=== PATIENT | female | born 1940 | race Caucasian/White ===

== ENCOUNTER 2017-08-21 18:29 | Inpatient (IN) | payer OTHER ==
[~2017-08-21] VITALS: Ht 162.6 cm; Wt 75.8 kg
[2017-08-21] MEDS ORDERED: ALBUT/IPRATROP 3MG/0.5MG NEB 3 ML VIAL INH ONE (19:00)
[2017-08-21 19:15] LABS: BASO % 0.5 %; BASO ABS # 0.04 K/uL (0-0.2); EOS % 4.7 %; EOS ABS # 0.39 K/uL (0-0.5); HEMATOCRIT 34.6 % (37-47); HEMOGLOBIN 11.9 g/dL (12.0-16.0); IG# 0.02 K/uL (0.00-0.02); LYMPH % 18.2 %; LYMPH ABS # 1.51 K/uL (1.2-3.4); MEAN CELL VOLUME 89.2 fL (80-100); MEAN CORPUSCULAR HEMOGLOBIN 30.7 pg (25-34); MEAN CORPUSCULAR HGB CONC 34.4 g/dl (32-36); MEAN PLATELET VOLUME 9.3 fL (7.4-10.4); MONO % 13.9 %; MONO ABS # 1.15 K/uL (0.11-0.59); NEUT % 62.5 %; NEUT ABS # 5.19 K/uL (1.4-6.5); PLATELET COUNT 246 K/uL (130-400); RED CELL DISTRIBUTION WIDTH CV 13.5 % (11.5-14.5); RED CELL DISTRIBUTION WIDTH SD 43.5 fL (36.4-46.3)
--- NOTE | 2017-08-21 19:28 | DIAGNOSTIC IMAGING REPORT ---
CHEST ONE VIEW PORTABLE CLINICAL HISTORY: Shortness of breath COMPARISON STUDY: No previous studies for comparison. FINDINGS: The heart is enlarged. There is elevation of the interstitium, likely secondary to interstitial pulmonary edema. There is no lobar consolidation. Small pleural effusions are suspected.[ IMPRESSION: Cardiomegaly and radiographic evidence of interstitial pulmonary edema. Small bilateral pleural effusions. Electronically signed by: Philippe Ruano M.D. 08/21/2017 7:26 PM Dictated Date/Time: 08/21/2017 7:26 PM
[2017-08-21 19:35] LABS: CREATININE 1.89 mg/dl (0.60-1.20)
--- NOTE | 2017-08-21 19:35 | EMERGENCY ROOM VISIT NOTE ---
History Report prepared by Argelia: Willy Gallardo Under the Supervision of: Dr. Gil Rosado M.D. First contact with patient: 18:42 Chief Complaint: RESPIRATORY PROBLEMS Stated Complaint: FEVER, HEADACHE, DIFFICULTY BREATHING, UTI History of Present Illness The patient is a 77 year old female who presents to the Emergency Room with complaints of intermittent shortness of breath beginning today. She currently rates her discomfort an 8/10 in severity. The patient's daughter states this is her third episode today. She reports the patient is on 2L of oxygen 08/12. The daughter notes the patient receives dialysis MWF. She states the patient was on steroids for her breathing about 3 months ago. The daughter reports the patient was at [facility] earlier and was told to come to the ED because she could not urinate and had a fever. She notes the patient has a history of UTIs and is showing her typical symptoms as well. The daughter states the patient did receive her flu shot this year. The patient denies abdominal pain. Source of History: patient, family (daughter) Onset: today Symptom Intensity: 8/10 Quality: other (SOB) Timing: intermittent Associated Symptoms: + fevers, No abdominal pain Note: Associated symptoms: inability to urinate Review of Systems See HPI for pertinent positives & negatives. A total of 10 systems reviewed and were otherwise negative. Past Medical & Surgical Medical Problems: (1) COPD exacerbation (2) UTI (urinary tract infection) (3) UTI (urinary tract infection) Family History Patient reports no known family medical history. Social History Smoking Status: Former Smoker Marital Status: Occupation Status: retired Current/Historical Medications Scheduled Albuterol Sulf (Proventil 0.083% 2.5MG/3ML), 2.5 MG INH BID Amlodipine (Norvasc), 5 MG PO QPM Arformoterol Tartrate (Brovana), 15 MCG INH BID Aspirin (Aspirin Chewable), 81 MG PO DAILY B-Complex W/ C & Folic Acid (Triphrocaps), 1 CAP PO DAILY Budesonide (Pulmicort Respules 0.5MG/2ML), 2 ML INH BID Clonidine Hcl (Catapres), 0.1 MG PO BID Ergocalciferol (Vitamin D 06558 Unit), 50,000 UNIT PO WK Ferrous Sulfate (Ferrous Sulfate), 325 MG PO BID Furosemide (Lasix), 80 MG PO BID Furosemide (Lasix), 40 MG PO BID Insulin Aspart (Novolog), 6 UNITS SQ Q DINNER Insulin Human NPH (Novolin N), 8 UNITS SQ BID Metoprolol Tartrate (Lopressor) (Lopressor), 50 MG PO BID Metoprolol Tartrate (Lopressor) (Lopressor), 25 MG PO BID Montelukast Sodium (Singulair), 10 MG PO HS Paroxetine (Paxil), 20 MG PO HS Potassium Ext Rel (Klor-Con), 20 MEQ PO DAILY Pravastatin Sodium (Pravachol), 1 TAB PO QPM Probiotic Product (Probiotic), 1 CAP PO DAILY Ranitidine Hcl (Zantac), 150 MG PO BID Tiotropium [place] (Spiriva Respimat), 2 PUFF INH QAM [Lidocaine Prilocaine], 1 APPLN TOP UD Scheduled PRN Docusate Sodium (Colace), 1 CAP PO DAILY PRN for Constipation Flunisolide (Nasal) (Flunisolide), 2 SPRY NIKOS BID PRN for Nasal Congestion Fluocinonide (Lidex 0.05% Oint), 1 APPLN TOP BID PRN for AFFECTED ARREA Polyethylene Glycol 3350 (Miralax), 17 GM PO DAILY PRN for Constipation Polyethylene Glycol-Propylene (Systane Ultra), 1 DROPS OP QID PRN for DRYNESS Allergies Coded Allergies: No Known Allergies (Unverified , 08/21/17) Physical Exam Vital Signs Date Time Temp Pulse Resp B/P (MAP) Pulse Ox O2 Delivery O2 Flow Rate FiO2 08/21/17 20:03 67 20 163/87 100 Nebulizer 08/21/17 19:49 66 24 98 Mask 3.0 08/21/17 19:24 63 22 171/88 100 Nebulizer 08/21/17 19:12 63 08/21/17 19:06 99 Nasal Cannula 2.0 08/21/17 19:06 99 Nebulizer 2.0 08/21/17 19:03 95 Room Air 08/21/17 18:33 36.9 68 22 170/53 96 Nasal Cannula 2.0 Physical Exam GENERAL: Awake, alert, well-appearing, in no acute distress HENT: Normocephalic, atraumatic. Oropharynx unremarkable. EYES: Normal conjunctiva. Sclera non-icteric. NECK: Supple. No nuchal rigidity. FROM. No JVD. RESPIRATORY: Bilateral wheezing at bases. CARDIAC: Regular rate, normal rhythm. Extremities warm and well perfused. Pulses equal. ABDOMEN: Soft, non-distended. No tenderness to palpation. No rebound or guarding. No masses. RECTAL: Deferred. MUSCULOSKELETAL: Chest examination reveals no tenderness. The back is symmetrical on inspection without obvious abnormality. There is no CVA tenderness to palpation. No joint edema. LOWER EXTREMITIES: Calves are equal size bilaterally and non-tender. No edema. No discoloration. NEURO: Normal sensorium. No sensory or motor deficits noted. SKIN: No rash or jaundice noted. Medical Decision & Procedures ER Provider Diagnostic Interpretation: X-ray results as stated below per interpretation by me and the radiologist: CHEST ONE VIEW PORTABLE CLINICAL HISTORY: Shortness of breath COMPARISON STUDY: No previous studies for comparison. FINDINGS: The heart is enlarged. There is elevation of the interstitium, likely secondary to interstitial pulmonary edema. There is no lobar consolidation. Small pleural effusions are suspected. IMPRESSION: Cardiomegaly and radiographic evidence of interstitial pulmonary edema. Small bilateral pleural effusions. Electronically signed by: Philippe Ruano M.D. 08/21/2017 7:26 PM Dictated Date/Time: 08/21/2017 7:26 PM Laboratory Results 08/21/17 19:00 Red Blood Count 3.88, Mean Corpuscular Volume 89.2, Mean Corpuscular Hemoglobin 30.7, Mean Corpuscular Hemoglobin Concent 34.4, Mean Platelet Volume 9.3, Neutrophils (%) (Auto) 62.5, Lymphocytes (%) (Auto) 18.2, Monocytes (%) (Auto) 13.9, Eosinophils (%) (Auto) 4.7, Basophils (%) (Auto) 0.5, Neutrophils # (Auto ) 5.19, Lymphocytes # (Auto) 1.51, Monocytes # (Auto) 1.15, Eosinophils # (Auto ) 0.39, Basophils # (Auto) 0.04 08/21/17 19:00 Test 08/21/17 19:00 08/21/17 19:21 White Blood Count 8.30 K/uL (4.8-10.8) Red Blood Count 3.88 M/uL (4.2-5.4) Hemoglobin 11.9 g/dL (12.0-16.0) Hematocrit 34.6 % (37-47) Mean Corpuscular Volume 89.2 fL (80-100) Mean Corpuscular Hemoglobin 30.7 pg (25-34) Mean Corpuscular Hemoglobin Concent 34.4 g/dl (32-36) Platelet Count 246 K/uL (130-400) Mean Platelet Volume 9.3 fL (7.4-10.4) Neutrophils (%) (Auto) 62.5 % Lymphocytes (%) (Auto) 18.2 % Monocytes (%) (Auto) 13.9 % Eosinophils (%) (Auto) 4.7 % Basophils (%) (Auto) 0.5 % Neutrophils # (Auto) 5.19 K/uL (1.4-6.5) Lymphocytes # (Auto) 1.51 K/uL (1.2-3.4) Monocytes # (Auto) 1.15 K/uL (0.11-0.59) Eosinophils # (Auto) 0.39 K/uL (0-0.5) Basophils # (Auto) 0.04 K/uL (0-0.2) RDW Standard Deviation 43.5 fL (36.4-46.3) RDW Coefficient of Variation 13.5 % (11.5-14.5) Immature Granulocyte % (Auto) 0.2 % Immature Granulocyte # (Auto) 0.02 K/uL (0.00-0.02) Prothrombin Time 11.3 SECONDS (9.0-12.0) Prothromb Time International Ratio 1.1 (0.9-1.1) Anion Gap 7.0 mmol/L (3-11) Est Creatinine Clear Calc Drug Dose 23.4 ml/min Estimated GFR () 28.9 Estimated GFR (Non- 25.0 BUN/Creatinine Ratio 11.1 (10-20) Calcium Level 8.3 mg/dl (8.5-10.1) Total Bilirubin 0.4 mg/dl (0.2-1) Aspartate Amino Transf (AST/SGOT) 24 U/L (15-37) Alanine Aminotransferase (ALT/SGPT) 56 U/L (12-78) Alkaline Phosphatase 87 U/L (45-117) Total Creatine Kinase 53 U/L (26-192) Creatine Kinase MB 1.7 ng/ml (0.5-3.6) Creatine Kinase MB Ratio 3.2 (0-3.0) Total Protein 6.9 gm/dl (6.4-8.2) Albumin 2.7 gm/dl (3.4-5.0) Globulin 4.2 gm/dl (2.5-4.0) Albumin/Globulin Ratio 0.6 (0.9-2) Influenza Type A Antigen Neg for Influ A (NEG) Influenza Type B Antigen Neg for Influ B (NEG) Urine Color YELLOW Urine Appearance CLEAR (CLEAR) Urine pH 6.5 (4.5-7.5) Urine Specific [place] 1.013 (1.000-1.030) Urine Protein 3+ (NEG) Urine Glucose (UA) NEG (NEG) Urine Ketones NEG (NEG) Urine Occult Blood NEG (NEG) Urine Nitrite POS (NEG) Urine Bilirubin NEG (NEG) Urine Urobilinogen NEG (NEG) Urine Leukocyte Esterase SMALL (NEG) Urine WBC (Auto) 10-30 /hpf (0-5) Urine RBC (Auto) 0-4 /hpf (0-4) Urine Hyaline Casts (Auto) 1-5 /lpf (0-5) Urine Epithelial Cells (Auto) 20-30 /lpf (0-5) Urine Bacteria (Auto) NEG (NEG) Labs reviewed by ED physician. Medications Administered Medications (Trade) Dose Ordered Sig/Yfn Route Start Time Stop Time Status Last Admin Dose Admin Albuterol/ Ipratropium (Duoneb) 12 ml ONE ONCE INH 08/21/17 19:00 08/21/17 19:01 DC 08/21/17 19:11 12 ML Ceftriaxone Sodium (Rocephin Inj) 1 gm NOW STAT IV 08/21/17 19:41 08/21/17 19:42 DC 08/21/17 20:03 1 GM Albuterol/ Ipratropium (Duoneb) 3 ml Q6R NEB 08/21/17 03:00 09/20/17 02:59 08/22/17 02:05 3 ML ECG Per My Interpretation Indication: SOB/dyspnea Rate (beats per minute): 66 Rhythm: normal sinus Findings: RBBB, left axis deviation, other (No ST elevation or depression) ED Course 1844: Past medical records reviewed. The patient was evaluated in room C07. A complete history and physical examination was performed. 1899: Ordered Duoneb 12ml INH 1937: Upon reexamination the patient is resting comfortably. I discussed results and treatment plan with the patient. She verbalizes agreement and understanding. The patient will be evaluated for further management. 1940: Ordered Rocephin Inj 1gm IV 2008: I discussed the patient's case with Johanna Galeano Hospitalist. The patient will be evaluated for further management and care. Medical Decision Etiologies such as infections, reactive airway disease, pneumonia, pneumothorax , COPD, CHF, cardiac ischemia, pulmonary embolism, musculoskeletal, gastrointestinal, as well as others were entertained. This is a 77-year-old female who receives dialysis on Thursday and Fridays. She is brought into the emergency department over concerns about an altered mental status. The patient's urine appears to have infection present. For this reason she was started on IV Rocephin. She was given an hour-long breathing treatment here in the emergency department. I did discuss her case with the hospitalist service who agreed to admit the patient. Both patient and family were in agreement with the treatment plan. Medication Reconcilliation Current Medication List: was personally reviewed by me Blood Pressure Screening Patient's blood pressure: Elevated blood pressure Referred to hospitalist. Consults Time Called: 1957 Consulting Physician: Johanna Galeano Hospitalist Returned Call: 2008 I discussed the patient's case with Joahnna Galeano. The patient will be evaluated for further management and care. Impression Primary Impression: SOB (shortness of breath) Additional Impressions: UTI (urinary tract infection) Altered mental status Scribe Attestation The scribe's documentation has been prepared under my direction and personally reviewed by me in its entirety. I confirm that the note above accurately reflects all work, treatment, procedures, and medical decision making performed by me. Departure Information Dispostion Being Evaluated By Hospitalist Referrals No Doctor, Assigned (PCP) Patient Instructions My [facility] Problem Qualifiers Additional Impressions: UTI (urinary tract infection) Urinary tract infection type: acute cystitis Hematuria presence: without hematuria Qualified Codes: N30.00 - Acute cystitis without hematuria Altered mental status Altered mental status type: unspecified Qualified Codes: R41.82 - Altered mental status, unspecified
[2017-08-21 19:36] LABS: ALBUMIN 2.7 gm/dl (3.4-5.0); CALCIUM 8.3 mg/dl (8.5-10.1)
[2017-08-21 19:40] LABS: CKMB 1.7 ng/ml (0.5-3.6); TOTAL PROTEIN 6.9 gm/dl (6.4-8.2)
[2017-08-21] MEDS ORDERED: CEFTRIAXONE SOD INJ 1 GM ADDVIAL IV STA (19:41)
[2017-08-21 19:49] VITALS: PULSE 66; O2SAT 98
[2017-08-21 20:02] LABS: INFLUENZA B ANTIGEN Neg for Influ B (NEG)
[2017-08-21] MEDS ORDERED: ENOXAPARIN 40 MG/0.4 ML SYR SC SCH (20:30)
[2017-08-21] MEDS ORDERED: DEXTROSE 50% 50 ML SYR IV PRN (20:30)
[2017-08-21] MEDS ORDERED: GLUCOSE 10 TABS/TUBE PO PRN (20:30)
[2017-08-21] MEDS ORDERED: GLUCAGON FOR INJ 1 MG VIAL SQ PRN (20:30)
[2017-08-21] MEDS ORDERED: ONDANSETRON INJ 2 MG/ML 2 ML VIAL IV PRN (20:30)
[2017-08-21] MEDS ORDERED: ACETAMINOPHEN 325 MG TAB PO PRN (20:30)
[2017-08-21] MEDS ORDERED: GLUCOSE 40% GEL 15 GM TUBE PO PRN (20:30)
[2017-08-21] MEDS ORDERED: ERGO500037 PO (20:44)
[2017-08-21] MEDS ORDERED: B-COCAP28 PO (20:44)
[2017-08-21] MEDS ORDERED: TIOT1SPR INH (20:44)
[2017-08-21] MEDS ORDERED: POLY1SOL6 OP (20:44)
[2017-08-21] MEDS ORDERED: PHARMACY GLYCEMIC MGMT CONSULT SCH (20:54)
[2017-08-21] MEDS ORDERED: AMLO-110 PO (20:57)
[2017-08-21] MEDS ORDERED: FURO80TA63 PO (20:57)
[2017-08-21] MEDS ORDERED: FRS/40 PO (20:57)
[2017-08-21] MEDS ORDERED: ARFO15NE INH (20:57)
[2017-08-21] MEDS ORDERED: ASPCH81X PO (20:57)
[2017-08-21] MEDS ORDERED: FLUN0.02 NAE (20:57)
[2017-08-21] MEDS ORDERED: DOCU-94 PO (20:57)
[2017-08-21] MEDS ORDERED: CTP/1 PO (20:57)
[2017-08-21] MEDS ORDERED: LDXO60 TOP (20:57)
[2017-08-21] MEDS ORDERED: ALBINS/ INH (20:57)
[2017-08-21] MEDS ORDERED: PLMINSR5 INH (20:57)
[2017-08-21] MEDS ORDERED: FERR1TAB62 PO (20:57)
[2017-08-21] MEDS ORDERED: PATIENT'S ALLERGY INFO NEEDS ENTERED SCH (21:00)
--- NOTE | 2017-08-21 21:07 | History and Physical ---
History & Physical Date & Time of Service: Aug 21, 2017 at 20:56 Chief Complaint: Fever, Headache, Difficulty Breathing, Uti Primary Care Physician: No Doctor, Assigned History of Present Illness Source: patient, family, clinic records, hospital records This is a 77 year old female with a PMH of ESRD on HD --, COPD and chronic respiratory failure on 2L of O2 continuously, CAD, insulin dependent DM2, chronic systolic CHF, HTN - presents with worsening shortness of breath x1 day and UTI. Patient was short of breath all day; went to dialysis and had her dialysis, she felt slightly better, but then became more short of breath. Pt. uses 2L of O2 chronically. As per daughter, she was also concerned about a UTI because the patient becomes more lethargic/tired with UTIs; she has had recurrent UTIs in the past. Currently, she is saturating well on her baseline O2. Very hard of hearing and lethargic; most of the history is obtained by the daughter. Past Medical/Surgical History Medical Problems: (1) COPD exacerbation (2) UTI (urinary tract infection) (3) UTI (urinary tract infection) Family History Patient reports no known family medical history. Social History Smoking Status: Former Smoker Marital Status: Occupational Status: retired Home Medications Scheduled Albuterol Sulf (Proventil 0.083% 2.5MG/3ML), 2.5 MG INH BID Amlodipine (Norvasc), 5 MG PO DAILY Arformoterol Tartrate (Brovana), 15 MCG INH BID Aspirin (Aspirin Chewable), 81 MG PO DAILY B-Complex W/ C & Folic Acid (Triphrocaps), 1 CAP PO DAILY Budesonide (Pulmicort Respules 0.5MG/2ML), 2 ML INH BID Clonidine Hcl (Catapres), 0.1 MG PO BID Ergocalciferol (Vitamin D 07833 Unit), 50,000 UNIT PO WK Ferrous Sulfate (Ferrous Sulfate), 325 MG PO BID Flunisolide (Nasal) (Flunisolide), 2 SPRY NIKOS BID Furosemide (Lasix), 80 MG PO BID Furosemide (Lasix), 40 MG PO BID Tiotropium [place] (Spiriva Respimat), 2 PUFF INH QAM Scheduled PRN Docusate Sodium (Colace), 1 CAP PO DAILY PRN for Constipation Fluocinonide (Lidex 0.05% Oint), 1 APPLN TOP BID PRN for AFFECTED ARREA Polyethylene Glycol-Propylene (Systane Ultra), 1 DROPS OP QID PRN for DRYNESS Review of Systems Cannot obtain due to patient's lethargy; SOB was her main complaint during dialysis. Respiratory: + shortness of breath Physical Exam Vital Signs Date Time Temp Pulse Resp B/P (MAP) Pulse Ox O2 Delivery O2 Flow Rate FiO2 08/21/17 20:03 67 20 163/87 100 Nebulizer 08/21/17 19:49 66 24 98 Mask 3.0 08/21/17 19:24 63 22 171/88 100 Nebulizer 08/21/17 19:12 63 08/21/17 19:06 99 Nasal Cannula 2.0 08/21/17 19:06 99 Nebulizer 2.0 08/21/17 19:03 95 Room Air 08/21/17 18:33 36.9 68 22 170/53 96 Nasal Cannula 2.0 General Appearance: + pertinent finding (lethargic) Head: normocephalic, atraumatic Eyes: normal inspection ENT: + pertinent finding (hard of hearing) Neck: supple Respiratory/Chest: no respiratory distress, no accessory muscle use, + decreased breath sounds Cardiovascular: regular rate, rhythm, no edema, + systolic murmur (+2/6 holosystolic murmur) Abdomen/GI: normal bowel sounds, non tender, soft Extremities/Musculoskelatal: normal inspection, no calf tenderness, normal capillary refill, no pedal edema, normal range of motion Neurologic/Psych: no motor/sensory deficits, + pertinent finding (+lethargic, arouses to verbal/tactile stimuli) Skin: normal color Lymphatic: no adenopathy Diagnostics Laboratory Results Results Past 24 Hours Test 08/21/17 19:00 08/21/17 19:21 Range/Units White Blood Count 8.30 4.8-10.8 K/uL Red Blood Count 3.88 4.2-5.4 M/uL Hemoglobin 11.9 12.0-16.0 g/dL Hematocrit 34.6 37-47 % Mean Corpuscular Volume 89.2 80-100 fL Mean Corpuscular Hemoglobin 30.7 25-34 pg Mean Corpuscular Hemoglobin Concent 34.4 32-36 g/dl Platelet Count 246 130-400 K/uL Mean Platelet Volume 9.3 7.4-10.4 fL Neutrophils (%) (Auto) 62.5 % Lymphocytes (%) (Auto) 18.2 % Monocytes (%) (Auto) 13.9 % Eosinophils (%) (Auto) 4.7 % Basophils (%) (Auto) 0.5 % Neutrophils # (Auto) 5.19 1.4-6.5 K/uL Lymphocytes # (Auto) 1.51 1.2-3.4 K/uL Monocytes # (Auto) 1.15 0.11-0.59 K/uL Eosinophils # (Auto) 0.39 0-0.5 K/uL Basophils # (Auto) 0.04 0-0.2 K/uL RDW Standard Deviation 43.5 36.4-46.3 fL RDW Coefficient of Variation 13.5 11.5-14.5 % Immature Granulocyte % (Auto) 0.2 % Immature Granulocyte # (Auto) 0.02 0.00-0.02 K/uL Sodium Level 130 136-145 mmol/L Potassium Level 4.0 3.5-5.1 mmol/L Chloride Level 94 98-107 mmol/L Carbon Dioxide Level 29 21-32 mmol/L Anion Gap 7.0 3-11 mmol/L Blood Urea Nitrogen 21 7-18 mg/dl Creatinine 1.89 0.60-1.20 mg/dl Est Creatinine Clear Calc Drug Dose 23.4 ml/min Estimated GFR () 28.9 Estimated GFR (Non- 25.0 BUN/Creatinine Ratio 11.1 10-20 Random Glucose 199 70-99 mg/dl Calcium Level 8.3 8.5-10.1 mg/dl Total Bilirubin 0.4 0.2-1 mg/dl Aspartate Amino Transf (AST/SGOT) 24 15-37 U/L Alanine Aminotransferase (ALT/SGPT) 56 12-78 U/L Alkaline Phosphatase 87 45-117 U/L Total Creatine Kinase 53 26-192 U/L Creatine Kinase MB 1.7 0.5-3.6 ng/ml Creatine Kinase MB Ratio 3.2 0-3.0 Total Protein 6.9 6.4-8.2 gm/dl Albumin 2.7 3.4-5.0 gm/dl Globulin 4.2 2.5-4.0 gm/dl Albumin/Globulin Ratio 0.6 0.9-2 Influenza Type A Antigen Neg for Influ A NEG Influenza Type B Antigen Neg for Influ B NEG Urine Color YELLOW Urine Appearance CLEAR CLEAR Urine pH 6.5 4.5-7.5 Urine Specific [place] 1.013 1.000-1.030 Urine Protein 3+ NEG Urine Glucose (UA) NEG NEG Urine Ketones NEG NEG Urine Occult Blood NEG NEG Urine Nitrite POS NEG Urine Bilirubin NEG NEG Urine Urobilinogen NEG NEG Urine Leukocyte Esterase SMALL NEG Urine WBC (Auto) 10-30 0-5 /hpf Urine RBC (Auto) 0-4 0-4 /hpf Urine Hyaline Casts (Auto) 1-5 0-5 /lpf Urine Epithelial Cells (Auto) 20-30 0-5 /lpf Urine Bacteria (Auto) NEG NEG Microbiology Results 08/21/17 Urine Culture, Received Pending Diagnostic Radiology CHEST ONE VIEW PORTABLE CLINICAL HISTORY: Shortness of breath COMPARISON STUDY: No previous studies for comparison. FINDINGS: The heart is enlarged. There is elevation of the interstitium, likely secondary to interstitial pulmonary edema. There is no lobar consolidation. Small pleural effusions are suspected.[ IMPRESSION: Cardiomegaly and radiographic evidence of interstitial pulmonary edema. Small bilateral pleural effusions. EKG Normal sinus rhythm Left axis deviation Right bundle branch block Impression Assessment and Plan This is a 77 year old female with a PMH of ESRD on HD , COPD and chronic respiratory failure on 2L of O2 continuously, CAD, insulin dependent DM2, chronic systolic CHF, HTN - presents with worsening shortness of breath x1 day and UTI Acute COPD Exacerbation in the setting of Chronic Respiratory Failure - patient presents with worsening shortness of breath; COPD vs. fluid overload? - patient received dialysis today (08/21) - will add prednisone 40mg daily x5 days, Azithromycin, and nebs as needed - chronically on 2L of O2 - will consult nephrology for possible dialysis for more fluid removal? ESRD on HD - - nephrology consulted Chronic Systolic CHF - possible acute exacerbation? - will give an extra dose of Lasix; patient still produces urine - nephrology consulted - patient takes 120mg of Lasix daily UTI - started Rocephin - as per patient's daughter, patient gets confused with UTIs - urine culture is pending Insulin Dependent DM2 - due to prednisone use, will use sliding scale and Lantus - pharmacy consulted DVT ppx - subq heparin DNR Resuscitation Status VTE Prophylaxis Will order VTE Prophylaxis: Yes
[2017-08-21] MEDS ORDERED: PARO1TAB27 PO (21:12)
[2017-08-21] MEDS ORDERED: PRAV40TA PO (21:12)
[2017-08-21] MEDS ORDERED: NVLG SQ (21:12)
[2017-08-21] MEDS ORDERED: NVLNI SQ (21:12)
[2017-08-21] MEDS ORDERED: RANI150T3 PO (21:12)
[2017-08-21] MEDS ORDERED: MISCCAP80 PO (21:12)
[2017-08-21] MEDS ORDERED: POTA-639 PO (21:12)
[2017-08-21] MEDS ORDERED: LIDOCAINE PRILOCAINE TOP (21:12)
[2017-08-21] MEDS ORDERED: MONT1TAB3 PO (21:12)
[2017-08-21] MEDS ORDERED: POLY335019 PO (21:12)
[2017-08-21] MEDS ORDERED: METO50TA16 PO (21:12)
[2017-08-21] MEDS ORDERED: METO25TA56 PO (21:12)
[2017-08-21 21:15] VITALS: BP 190/63; PULSE 81; TEMP 36.9; O2SAT 94; BMI 28.2
[2017-08-21] MEDS ORDERED: DOCUSATE SODIUM 100 MG CAP PO PRN (21:15)
[2017-08-21] MEDS ORDERED: FUROSEMIDE INJ 40 MG in SYRINGE 0 ML IV ONE (21:30)
[2017-08-21] MEDS ORDERED: INSULIN GLARGINE SOLOSTAR 100 UNITS/ML 3 ML PEN SC SCH (21:45)
[2017-08-21] MEDS: ALBUT/IPRATROP 3MG/0.5MG NEB 3 ML VIAL NEB SCH ×4 (21:53→21:59)
[2017-08-21 22:04] LABS: INR 1.1 (0.9-1.1)
[2017-08-21] MEDS: FUROSEMIDE 40 MG TAB PO SCH (22:30)
[2017-08-21] MEDS: PAROXETINE 20 MG TAB PO SCH (22:31)
[2017-08-21] MEDS: FUROSEMIDE 80 MG TAB PO SCH (22:31)
[2017-08-21] MEDS: METOPROLOL TARTRATE 25 MG TAB PO SCH (22:31)
[2017-08-21] MEDS: AMLODIPINE BESYLATE 5 MG TAB PO SCH (22:31)
[2017-08-21] MEDS: PRAVASTATIN SOD 40 MG TAB PO SCH (22:31)
[2017-08-21] MEDS: MONTELUKAST SOD 10 MG TAB PO SCH (22:32)
[2017-08-21] MEDS: RANITIDINE HCL 150 MG TAB PO SCH (22:32)
[2017-08-21] MEDS: INSULIN ASPART 100 UNITS/ML 3 ML PEN SC SCH (22:33)
[2017-08-21 23:24] VITALS: BP 174/55; PULSE 73; TEMP 37; O2SAT 94
[2017-08-22] VITALS (15 sets, daily range): BP systolic 82–164; BP diastolic 33–65; PULSE 61–113; TEMP 36.4–37.1; O2SAT 75–100
[2017-08-22] MEDS ORDERED: VANCOMYCIN IV 1,000 MG in SODIUM CHLORIDE 0.9% 250ML 250 ML IV STA (01:06)
[2017-08-22] MEDS ORDERED: VANCOMYCIN CONSULT ACTIVE PRN (01:15)
[2017-08-22] MEDS ORDERED: VANCOMYCIN IV 1,500 MG in SODIUM CHLORIDE 0.9% 500ML 500 ML IV SCH (01:30)
[2017-08-22] MEDS: ALBUT/IPRATROP 3MG/0.5MG NEB 3 ML VIAL NEB SCH ×4 (02:05→19:29)
[2017-08-22] MEDS ORDERED: ALBUT/IPRATROP 3MG/0.5MG NEB 3 ML VIAL NEB ONE (03:27)
[2017-08-22] MEDS ORDERED: SODIUM CHLORIDE 0.9% 500ML 500 ML IV SCH (03:30)
[2017-08-22] MEDS ORDERED: METHYLPREDNISOLONE IV 40 MG in SYRINGE 0 ML IV STA (03:39)
[2017-08-22] MEDS ORDERED: LABETALOL HCL IV 5 MG/ML 20ML IV STA (03:39)
[2017-08-22] MEDS ORDERED: LABETALOL HCL 5 MG/ML 20 ML VIAL - CCU EMERGENCY DRUG ONE (03:40)
[2017-08-22] MEDS ORDERED: NITROGLYCERIN 2% OINTMENT 30GM TUBE EXT STA (03:47)
[2017-08-22 04:21] LABS: HEMATOCRIT 37.6 % (37-47); HEMOGLOBIN 12.6 g/dL (12.0-16.0); MEAN CELL VOLUME 91.7 fL (80-100); MEAN CORPUSCULAR HEMOGLOBIN 30.7 pg (25-34); MEAN CORPUSCULAR HGB CONC 33.5 g/dl (32-36); MEAN PLATELET VOLUME 9.5 fL (7.4-10.4); PLATELET COUNT 281 K/uL (130-400); RED CELL DISTRIBUTION WIDTH CV 13.6 % (11.5-14.5); RED CELL DISTRIBUTION WIDTH SD 45.8 fL (36.4-46.3)
--- NOTE | 2017-08-22 04:41 | Progress Note ---
Progress Note Date of Service Aug 22, 2017. Progress Note I also asked by the nurse to evaluate the patient with having more shortness of breath and low saturation. 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 She went to the restroom and following that she started to have more shortness of breath very anxious. The daughter of the patient was in the room with. My examination she was very anxious and shortness of breath at rest. Saturation went up to knee in 19 with 6 L nasal cannula oxygen and blood pressure is noted to be more than 200 systolic. Chest decreased breath sounds both sides with moderate wheezing, heart S1-S2 regular no murmur appreciated, abdomen benign distended soft bowel sounds present. Extremities no edema [employer] very anxious still communicating a little drowsy, moving all the limbs Assessment and plan acute shortness of breath with COPD exacerbation and possible pneumonia. She was given another dose of albuterol, IV Solu-Medrol of 40 mg, and BiPAP therapy started. ABG showed pH of 7.13, hypercarbia of 88-acidosis seems to be secondary to combined respiratory and metabolic acidosis. Chest x-ray showed possible fluid overload but no infiltration and/or pneumothorax. She received enough Lasix since admission and will not give any Lasix now. She has had dialysis yesterday. If her condition does not get any better she will be moved to ICU for continuation of care and that will discussed with the daughter. She is DNR. Accelerated hypertension. Her blood pressure went up to 210/100 on manual BP check. She was given 20 of IV labetalol and also 1 inch Nitropaste. EKG was done showed sinus tachycardia and troponin ordered. Blood pressure improved to systolic 150 did not recheck. The patient reevaluated-seems to be stable at this time but if the condition gets worse she will be moved to ICU. The case was discussed in detail with the daughter. Dr. Lindsay Hu
[2017-08-22 04:42] LABS: BLOOD UREA NITROGEN 31 mg/dl (7-18); CALCIUM 8.2 mg/dl (8.5-10.1); CARBON DIOXIDE 28 mmol/L (21-32); CREATININE 2.38 mg/dl (0.60-1.20); GLUCOSE 176 mg/dl (70-99); POTASSIUM 4.2 mmol/L (3.5-5.1); SODIUM 132 mmol/L (136-145)
[2017-08-22] MEDS: HEPARIN SOD 5000 UNIT/0.5 ML CARP SQ SCH ×3 (06:20→21:24)
[2017-08-22] MEDS: BUDESONIDE 0.5 MG/2 ML VIAL (PULMICORT) INH SCH ×2 (07:07→19:29)
[2017-08-22] MEDS: ARFORMOTEROL TART 15MCG/2ML VIAL INH SCH ×2 (07:07→19:29)
--- NOTE | 2017-08-22 07:41 | DIAGNOSTIC IMAGING REPORT ---
CHEST ONE VIEW PORTABLE CLINICAL HISTORY: 77 years-old Female presenting with sob, COPD exacerbation, UTI. TECHNIQUE: Portable upright AP view of the chest was obtained. COMPARISON: 08/21/2017. FINDINGS: Atherosclerosis of aortic arch. Cardiac silhouette enlarged. Interval increase in pulmonary vascular prominence and diffuse hazy lung opacities. Interval increase in small bilateral pleural effusions. No large pneumothorax. Osteopenia may be present. External leads project over the right upper quadrant degrading evaluation in this region. IMPRESSION: 1. Cardiomegaly with increasing pulmonary vascular prominence and diffuse lung opacities concerning for volume overload and pulmonary edema. Differential considerations include multifocal infection. 2. Small bilateral pleural effusions. Electronically signed by: Jim Collins M.D. 08/22/2017 7:40 AM Dictated Date/Time: 08/22/2017 7:38 AM
[2017-08-22] MEDS: FERROUS SULFATE 325 MG TAB PO SCH ×2 (08:41→17:28)
[2017-08-22] MEDS: FUROSEMIDE 40 MG TAB PO SCH (08:41)
[2017-08-22] MEDS: CLONIDINE HCL 0.1 MG TAB PO SCH ×3 (08:42→21:22)
[2017-08-22] MEDS: NEPHROCAPS PO SCH (08:43)
[2017-08-22] MEDS: AZITHROMYCIN 250 MG TAB PO SCH (08:43)
[2017-08-22] MEDS: RANITIDINE HCL 150 MG TAB PO SCH ×2 (08:44→21:23)
[2017-08-22] MEDS: FUROSEMIDE 80 MG TAB PO SCH (08:45)
[2017-08-22] MEDS: METOPROLOL TARTRATE 25 MG TAB PO SCH ×2 (08:45→21:23)
[2017-08-22] MEDS: TIOTROPIUM BROMIDE 5 PUFF/90 MCG INH INH SCH (08:48)
[2017-08-22] MEDS: INSULIN ASPART 100 UNITS/ML 3 ML PEN SC SCH ×4 (08:57→21:00)
[2017-08-22] MEDS ORDERED: FUROSEMIDE 80 MG TAB PO SCH (09:00)
[2017-08-22] MEDS ORDERED: METOPROLOL TARTRATE 50 MG TAB PO SCH (09:00)
[2017-08-22] MEDS ORDERED: METOPROLOL TARTRATE 25 MG TAB PO SCH (09:00)
[2017-08-22] MEDS ORDERED: FUROSEMIDE 40 MG TAB PO SCH (09:00)
[2017-08-22] MEDS ORDERED: ASPIRIN 81 MG CHEW PO SCH (09:00)
--- NOTE | 2017-08-22 09:35 | Pharmacy Progress Note ---
Pharmacy Antibiotic Consult Date of Service: Aug 22, 2017. Pharmacy Dosing Scope Pharmacy is consulted to initiate [] IV dosing therapy, order appropriate labs and adjust drug dose/frequency. Subjective 77 year old female patient with ESRD on dialysis receiving vancomycin for treatment of possible pnx. Increased SOB/weakness, pos. MRSA nasal swab. Also concerns of UTI. Cx ordered. Objective Height (Feet): 5 Height (Inches): 4.00 Weight (Kilograms): 74.800 Lab Results (24hrs): Test 08/21/17 19:00 08/21/17 19:21 08/22/17 03:27 08/22/17 04:08 White Blood Count 8.30 K/uL (4.8-10.8) 10.30 K/uL (4.8-10.8) Red Blood Count 3.88 M/uL (4.2-5.4) 4.10 M/uL (4.2-5.4) Hemoglobin 11.9 g/dL (12.0-16.0) 12.6 g/dL (12.0-16.0) Hematocrit 34.6 % (37-47) 37.6 % (37-47) Mean Corpuscular Volume 89.2 fL (80-100) 91.7 fL (80-100) Mean Corpuscular Hemoglobin 30.7 pg (25-34) 30.7 pg (25-34) Mean Corpuscular Hemoglobin Concent 34.4 g/dl (32-36) 33.5 g/dl (32-36) Platelet Count 246 K/uL (130-400) 281 K/uL (130-400) Mean Platelet Volume 9.3 fL (7.4-10.4) 9.5 fL (7.4-10.4) Neutrophils (%) (Auto) 62.5 % Lymphocytes (%) (Auto) 18.2 % Monocytes (%) (Auto) 13.9 % Eosinophils (%) (Auto) 4.7 % Basophils (%) (Auto) 0.5 % Neutrophils # (Auto) 5.19 K/uL (1.4-6.5) Lymphocytes # (Auto) 1.51 K/uL (1.2-3.4) Monocytes # (Auto) 1.15 K/uL (0.11-0.59) Eosinophils # (Auto) 0.39 K/uL (0-0.5) Basophils # (Auto) 0.04 K/uL (0-0.2) RDW Standard Deviation 43.5 fL (36.4-46.3) 45.8 fL (36.4-46.3) RDW Coefficient of Variation 13.5 % (11.5-14.5) 13.6 % (11.5-14.5) Immature Granulocyte % (Auto) 0.2 % Immature Granulocyte # (Auto) 0.02 K/uL (0.00-0.02) Prothrombin Time 11.3 SECONDS (9.0-12.0) Prothromb Time International Ratio 1.1 (0.9-1.1) Sodium Level 130 mmol/L (136-145) 132 mmol/L (136-145) Potassium Level 4.0 mmol/L (3.5-5.1) 4.2 mmol/L (3.5-5.1) Chloride Level 94 mmol/L (98-107) 98 mmol/L (98-107) Carbon Dioxide Level 29 mmol/L (21-32) 28 mmol/L (21-32) Anion Gap 7.0 mmol/L (3-11) 6.0 mmol/L (3-11) Blood Urea Nitrogen 21 mg/dl (7-18) 31 mg/dl (7-18) Creatinine 1.89 mg/dl (0.60-1.20) 2.38 mg/dl (0.60-1.20) Est Creatinine Clear Calc Drug Dose 23.4 ml/min 19.3 ml/min Estimated GFR () 28.9 21.9 Estimated GFR (Non- 25.0 18.9 BUN/Creatinine Ratio 11.1 (10-20) 13.2 (10-20) Random Glucose 199 mg/dl (70-99) 176 mg/dl (70-99) Calcium Level 8.3 mg/dl (8.5-10.1) 8.2 mg/dl (8.5-10.1) Total Bilirubin 0.4 mg/dl (0.2-1) Aspartate Amino Transf (AST/SGOT) 24 U/L (15-37) Alanine Aminotransferase (ALT/SGPT) 56 U/L (12-78) Alkaline Phosphatase 87 U/L (45-117) Total Creatine Kinase 53 U/L (26-192) Creatine Kinase MB 1.7 ng/ml (0.5-3.6) Creatine Kinase MB Ratio 3.2 (0-3.0) Total Protein 6.9 gm/dl (6.4-8.2) Albumin 2.7 gm/dl (3.4-5.0) Globulin 4.2 gm/dl (2.5-4.0) Albumin/Globulin Ratio 0.6 (0.9-2) Influenza Type A Antigen Neg for Influ A (NEG) Influenza Type B Antigen Neg for Influ B (NEG) Urine Color YELLOW Urine Appearance CLEAR (CLEAR) Urine pH 6.5 (4.5-7.5) Urine Specific [place] 1.013 (1.000-1.030) Urine Protein 3+ (NEG) Urine Glucose (UA) NEG (NEG) Urine Ketones NEG (NEG) Urine Occult Blood NEG (NEG) Urine Nitrite POS (NEG) Urine Bilirubin NEG (NEG) Urine Urobilinogen NEG (NEG) Urine Leukocyte Esterase SMALL (NEG) Urine WBC (Auto) 10-30 /hpf (0-5) Urine RBC (Auto) 0-4 /hpf (0-4) Urine Hyaline Casts (Auto) 1-5 /lpf (0-5) Urine Epithelial Cells (Auto) 20-30 /lpf (0-5) Urine Bacteria (Auto) NEG (NEG) Bedside Glucose 119 mg/dl (70-90) Arterial Blood pH 7.13 (7.35-7.45) Arterial Blood Partial Pressure CO2 88 mmHg (35-46) Arterial Blood Partial Pressure O2 404 mm/Hg (80-95) Arterial Blood HCO3 29 mmol/L (19-24) Arterial Blood Oxygen Saturation 99.8 % (90-95) Arterial Blood Base Excess -2.7 mEq/L (-9-1.8) Arterial Blood Gas Delivery 100% Alex Test POS (POS) Magnesium Level 2.1 mg/dl (1.8-2.4) Troponin I < 0.015 ng/ml (0-0.045) Test 08/22/17 06:43 08/22/17 08:15 Bedside Glucose 146 mg/dl (70-90) Arterial Blood pH 7.34 (7.35-7.45) Arterial Blood Partial Pressure CO2 51 mmHg (35-46) Arterial Blood Partial Pressure O2 95 mm/Hg (80-95) Arterial Blood HCO3 27 mmol/L (19-24) Arterial Blood Oxygen Saturation 97.0 % (90-95) Arterial Blood Base Excess 0.5 mEq/L (-9-1.8) Arterial Blood Gas Delivery 40% Alex Test POS (POS) Micro Results: Urine cx pending Recent Pertinent Medications Zithromax 500mg PO daily. Rocephin 1gm IV q 24 Assessment & Plan Vancomycin: Loading dose: 1500 mg IV X 1 dose (20mg/kg) on 08/22@ 0130, then pulse dosing in a dialysis patient (usually pulses doses given after dialysis). Goal trough level estimate: between 15 - 20 mcg/mL. Random level has been ordered for: 4/8 w/ AM labs. Further dosing to follow based on random tomorrow. Pharmacy will continue to follow and will adjust dose/frequency as necessary. Thank you
--- NOTE | 2017-08-22 09:51 | Progress Note ---
Medicine Progress Note Date & Time of Visit: Aug 22, 2017 at 09:36. Subjective 77-year-old female with ESRD on hemodialysis presents with acute worsening shortness of breath, some confusion for 1 day. She denies coughing had one episode of fever chills. She denies any recent weight gain swelling, or fluid overload. She has a history of COPD with a recent exacerbation 3 months ago. She is a non-smoker. Overnight she became acutely worse with tachypnea and fatigue. ABG at that time revealed respiratory acidosis with a pH of 7.1 and a CO2 of 88. BiPAP was started repeat gas this morning shows 7.34 with a CO2 of 51. The patient is still somewhat fatigued but is alert and appropriate. She is eating without issue. She wears 2 L oxygen 24 hours a day and is at her baseline. She otherwise denies pain coughing, fevers, chills, or any problems with urination including dysuria flank pain or urgency. Daughter is at the bedside and all questions were answered. Objective Last 8 Hrs Date Time Temp Pulse Resp B/P (MAP) Pulse Ox O2 Delivery O2 Flow Rate FiO2 08/22/17 08:00 BiPAP 40 08/22/17 07:58 36.7 71 20 158/65 (96) 100 BiPAP 08/22/17 07:50 36.7 69 18 144/56 (85) 97 BiPAP 40 08/22/17 07:08 68 100 60 08/22/17 07:07 68 20 100 BiPAP/CPAP 60 08/22/17 04:43 85 138/65 (89) 98 BiPAP 100 08/22/17 04:18 BiPAP 08/22/17 03:54 113 98 100 08/22/17 03:50 113 30 98 BiPAP/CPAP 2.0 08/22/17 03:27 37.1 99 82/33 (49) 75 Nasal Cannula 2.0 08/22/17 02:06 85 20 98 Nasal Cannula 2.0 Physical Exam: GEN: WNWD, in no acute distress, alert and appropriate HEENT: NC/AT, normal sclerae, NC in place CARDIO: reg rate, S1/2 heard without m/g/r LUNGS: coarse rhonchi at bases bilaterally ABD: soft, non-tender, non-distended, no rebound or guarding, +BS EXTREMITY: RP and DP palpable 2+ bilat, no LE swelling or edema, extremities are warm and well-perfused NEURO: CN 2-12 grossly intact, no gross focal deficits, however, pt appears fatigue MUSC: 5/5 strength throughout, no gross focal deficits but does have generalized weakness. SKIN: warm and dry Laboratory Results: 08/22/17 04:08 08/22/17 04:08 Test 08/21/17 19:00 08/21/17 19:21 08/22/17 04:08 08/22/17 06:43 Immature Granulocyte % (Auto) 0.2 % White Blood Count 8.30 K/uL (4.8-10.8) Red Blood Count 3.88 M/uL (4.2-5.4) 4.10 M/uL (4.2-5.4) Hemoglobin 11.9 g/dL (12.0-16.0) Hematocrit 34.6 % (37-47) Mean Corpuscular Volume 89.2 fL (80-100) 91.7 fL (80-100) Mean Corpuscular Hemoglobin 30.7 pg (25-34) 30.7 pg (25-34) Mean Corpuscular Hemoglobin Concent 34.4 g/dl (32-36) 33.5 g/dl (32-36) Platelet Count 246 K/uL (130-400) Mean Platelet Volume 9.3 fL (7.4-10.4) 9.5 fL (7.4-10.4) Neutrophils (%) (Auto) 62.5 % Lymphocytes (%) (Auto) 18.2 % Monocytes (%) (Auto) 13.9 % Eosinophils (%) (Auto) 4.7 % Basophils (%) (Auto) 0.5 % Neutrophils # (Auto) 5.19 K/uL (1.4-6.5) Lymphocytes # (Auto) 1.51 K/uL (1.2-3.4) Monocytes # (Auto) 1.15 K/uL (0.11-0.59) Eosinophils # (Auto) 0.39 K/uL (0-0.5) Basophils # (Auto) 0.04 K/uL (0-0.2) Immature Granulocyte # (Auto) 0.02 K/uL (0.00-0.02) Prothrombin Time 11.3 SECONDS (9.0-12.0) Prothromb Time International Ratio 1.1 (0.9-1.1) Total Bilirubin 0.4 mg/dl (0.2-1) Aspartate Amino Transf (AST/SGOT) 24 U/L (15-37) Alanine Aminotransferase (ALT/SGPT) 56 U/L (12-78) Alkaline Phosphatase 87 U/L (45-117) Total Creatine Kinase 53 U/L (26-192) Creatine Kinase MB 1.7 ng/ml (0.5-3.6) Creatine Kinase MB Ratio 3.2 (0-3.0) Total Protein 6.9 gm/dl (6.4-8.2) Albumin 2.7 gm/dl (3.4-5.0) Globulin 4.2 gm/dl (2.5-4.0) Albumin/Globulin Ratio 0.6 (0.9-2) Influenza Type A Antigen Neg for Influ A (NEG) Influenza Type B Antigen Neg for Influ B (NEG) Urine Color YELLOW Urine Appearance CLEAR (CLEAR) Urine pH 6.5 (4.5-7.5) Urine Specific [place] 1.013 (1.000-1.030) Urine Protein 3+ (NEG) Urine Glucose (UA) NEG (NEG) Urine Ketones NEG (NEG) Urine Occult Blood NEG (NEG) Urine Nitrite POS (NEG) Urine Bilirubin NEG (NEG) Urine Urobilinogen NEG (NEG) Urine Leukocyte Esterase SMALL (NEG) Urine WBC (Auto) 10-30 /hpf (0-5) Urine RBC (Auto) 0-4 /hpf (0-4) Urine Hyaline Casts (Auto) 1-5 /lpf (0-5) Urine Epithelial Cells (Auto) 20-30 /lpf (0-5) Urine Bacteria (Auto) NEG (NEG) RDW Standard Deviation 45.8 fL (36.4-46.3) RDW Coefficient of Variation 13.6 % (11.5-14.5) Anion Gap 6.0 mmol/L (3-11) Est Creatinine Clear Calc Drug Dose 19.3 ml/min Estimated GFR () 21.9 Estimated GFR (Non- 18.9 BUN/Creatinine Ratio 13.2 (10-20) Calcium Level 8.2 mg/dl (8.5-10.1) Magnesium Level 2.1 mg/dl (1.8-2.4) Troponin I < 0.015 ng/ml (0-0.045) Bedside Glucose 146 mg/dl (70-90) Test 08/22/17 08:15 Arterial Blood pH 7.34 (7.35-7.45) Arterial Blood Partial Pressure CO2 51 mmHg (35-46) Arterial Blood Partial Pressure O2 95 mm/Hg (80-95) Arterial Blood HCO3 27 mmol/L (19-24) Arterial Blood Oxygen Saturation 97.0 % (90-95) Arterial Blood Base Excess 0.5 mEq/L (-9-1.8) Arterial Blood Gas Delivery 40% Alex Test POS (POS) Date/Time Source Procedure Growth Status 08/21/17 21:33 Nasal MRSA DNA Surveillance Screen - Final Specimen Positive for MRSA by DNA Probe Complete 08/21/17 19:21 Urine,Catheterized Urine Culture Pending Received Last 24 Hours Test 08/21/17 19:00 08/21/17 19:21 08/21/17 22:18 08/22/17 03:27 White Blood Count 8.30 K/uL Red Blood Count 3.88 M/uL Hemoglobin 11.9 g/dL Hematocrit 34.6 % Mean Corpuscular Volume 89.2 fL Mean Corpuscular Hemoglobin 30.7 pg Mean Corpuscular Hemoglobin Concent 34.4 g/dl Platelet Count 246 K/uL Mean Platelet Volume 9.3 fL Neutrophils (%) (Auto) 62.5 % Lymphocytes (%) (Auto) 18.2 % Monocytes (%) (Auto) 13.9 % Eosinophils (%) (Auto) 4.7 % Basophils (%) (Auto) 0.5 % Neutrophils # (Auto) 5.19 K/uL Lymphocytes # (Auto) 1.51 K/uL Monocytes # (Auto) 1.15 K/uL Eosinophils # (Auto) 0.39 K/uL Basophils # (Auto) 0.04 K/uL RDW Standard Deviation 43.5 fL RDW Coefficient of Variation 13.5 % Immature Granulocyte % (Auto) 0.2 % Immature Granulocyte # (Auto) 0.02 K/uL Prothrombin Time 11.3 SECONDS Prothromb Time International Ratio 1.1 Sodium Level 130 mmol/L Potassium Level 4.0 mmol/L Chloride Level 94 mmol/L Carbon Dioxide Level 29 mmol/L Anion Gap 7.0 mmol/L Blood Urea Nitrogen 21 mg/dl Creatinine 1.89 mg/dl Est Creatinine Clear Calc Drug Dose 23.4 ml/min Estimated GFR () 28.9 Estimated GFR (Non- 25.0 BUN/Creatinine Ratio 11.1 Random Glucose 199 mg/dl Calcium Level 8.3 mg/dl Total Bilirubin 0.4 mg/dl Aspartate Amino Transf (AST/SGOT) 24 U/L Alanine Aminotransferase (ALT/SGPT) 56 U/L Alkaline Phosphatase 87 U/L Total Creatine Kinase 53 U/L Creatine Kinase MB 1.7 ng/ml Creatine Kinase MB Ratio 3.2 Total Protein 6.9 gm/dl Albumin 2.7 gm/dl Globulin 4.2 gm/dl Albumin/Globulin Ratio 0.6 Influenza Type A Antigen Neg for Influ A Influenza Type B Antigen Neg for Influ B Urine Color YELLOW Urine Appearance CLEAR Urine pH 6.5 Urine Specific [place] 1.013 Urine Protein 3+ Urine Glucose (UA) NEG Urine Ketones NEG Urine Occult Blood NEG Urine Nitrite POS Urine Bilirubin NEG Urine Urobilinogen NEG Urine Leukocyte Esterase SMALL Urine WBC (Auto) 10-30 /hpf Urine RBC (Auto) 0-4 /hpf Urine Hyaline Casts (Auto) 1-5 /lpf Urine Epithelial Cells (Auto) 20-30 /lpf Urine Bacteria (Auto) NEG Bedside Glucose 239 mg/dl 119 mg/dl Test 08/22/17 04:08 08/22/17 06:43 08/22/17 08:15 White Blood Count 10.30 K/uL Red Blood Count 4.10 M/uL Hemoglobin 12.6 g/dL Hematocrit 37.6 % Mean Corpuscular Volume 91.7 fL Mean Corpuscular Hemoglobin 30.7 pg Mean Corpuscular Hemoglobin Concent 33.5 g/dl RDW Standard Deviation 45.8 fL RDW Coefficient of Variation 13.6 % Platelet Count 281 K/uL Mean Platelet Volume 9.5 fL Arterial Blood pH 7.13 7.34 Arterial Blood Partial Pressure CO2 88 mmHg 51 mmHg Arterial Blood Partial Pressure O2 404 mm/Hg 95 mm/Hg Arterial Blood HCO3 29 mmol/L 27 mmol/L Arterial Blood Oxygen Saturation 99.8 % 97.0 % Arterial Blood Base Excess -2.7 mEq/L 0.5 mEq/L Arterial Blood Gas Delivery 100% 40% Alex Test POS POS Sodium Level 132 mmol/L Potassium Level 4.2 mmol/L Chloride Level 98 mmol/L Carbon Dioxide Level 28 mmol/L Anion Gap 6.0 mmol/L Blood Urea Nitrogen 31 mg/dl Creatinine 2.38 mg/dl Est Creatinine Clear Calc Drug Dose 19.3 ml/min Estimated GFR () 21.9 Estimated GFR (Non- 18.9 BUN/Creatinine Ratio 13.2 Random Glucose 176 mg/dl Calcium Level 8.2 mg/dl Magnesium Level 2.1 mg/dl Troponin I < 0.015 ng/ml Bedside Glucose 146 mg/dl Date/Time Source Procedure Growth Status 08/21/17 21:33 Nasal MRSA DNA Surveillance Screen - Final Specimen Positive for MRSA by DNA Probe Complete 08/21/17 19:21 Urine,Catheterized Urine Culture Pending Received Assessment & Plan 77-year-old female with ESRD on hemodialysis presents with acute worsening shortness of breath, some confusion for 1 day. She denies coughing had one episode of fever chills. She denies any recent weight gain swelling, or fluid overload. She has a history of COPD with a recent exacerbation 3 months ago. She is a non-smoker. Overnight she became acutely worse with tachypnea and fatigue. ABG at that time revealed respiratory acidosis with a pH of 7.1 and a CO2 of 88. BiPAP was started repeat gas this morning shows 7.34 with a CO2 of 51. The patient is still somewhat fatigued but is alert and appropriate. She is eating without issue. She wears 2 L oxygen 24 hours a day and is at her baseline. She otherwise denies pain coughing, fevers, chills, or any problems with urination including dysuria flank pain or urgency. Daughter is at the bedside and all questions were answered. 1. Acute respiratory failure secondary to acute on chronic COPD exacerbation- some evidence of vascular prominence was present on chest x-ray however patient is a patient and is on twice daily Lasix at higher doses. This does not appear to be a CHF exacerbation. No echocardiogram is on the chart for review at baseline. There is no wheezing on exam today and patient is clinically improved after BiPAP overnight. Will plan to continue prednisone, azithromycin , and bronchodilators. Continue oxygen supplementation which is at baseline. Appreciate nephrology input for possible dialysis for more fluid removal however patient appears compensated. Of note patient does not appear to to have pneumonia clinically. 2. ESRD on hemodialysis-patient receives care in [place]. Nephrology was consulted. She is on a Thursday schedule 3. Chronic systolic CHF-no baseline echo is available for record review. Patient is on baseline Lasix 120 twice daily. We will continue this. Patient does not appear to have acute CHF exacerbation at this time. Will order baseline echo. 4. UTI-urinalysis not convincing for acute cystitis however patient was having symptoms consistent with her typical UTIs which are recurrent. Of note the patient is straight cath twice a day by daughter. This includes some memory loss and difficulties urinating yesterday. The patient was started on Rocephin empirically with urine culture pending we will continue Rocephin until this returns. 5. Diabetes type 2-pharmacy consult for glycemic management. Continue insulin while hospitalized currently controlled. DVT prophylaxis-heparin DO NOT RESUSCITATE Disposition-continue telemetry monitoring DO [facility] Current Inpatient Medications: Current Inpatient Medications Medications (Trade) Dose Ordered Sig/Yfn Route Start Time Stop Time Status Last Admin Dose Admin Acetaminophen (Tylenol Tab) 650 mg Q4H PRN PO 08/21/17 20:30 09/20/17 20:29 Ondansetron HCl (Zofran Inj) 4 mg Q6H PRN IV 08/21/17 20:30 09/20/17 20:29 Insulin Aspart (novoLOG ASPART) SLIDING SCALE If C... ACHS SC 08/21/17 21:45 09/20/17 21:44 08/22/17 08:57 6 UNITS Glucose (Glucose 40% Gel) 15-30 GRAMS 15 GRAMS... UD PRN PO 08/21/17 20:30 09/20/17 20:29 Glucose (Glucose Chew Tab) 4-8 Tablets 4 Tabl... UD PRN PO 08/21/17 20:30 09/20/17 20:29 Dextrose (Dextrose 50% 50ML Syringe) 25-50ML OF 50% DW IV FOR... UD PRN IV 08/21/17 20:30 09/20/17 20:29 Glucagon (Glucagon Inj) 1 mg UD PRN SQ 08/21/17 20:30 09/20/17 20:29 Miscellaneous Information (Consult Glycemic Management Pharmacy) 1 ea UD N/A 08/21/17 20:54 09/20/17 20:53 Azithromycin (Zithromax Tab) 500 mg QAM PO 08/22/17 09:00 08/29/17 08:59 08/22/17 08:43 500 MG Ceftriaxone Sodium 1 gm/ Dextrose 50 ml @ 100 mls/hr Q24H IV 08/22/17 20:00 08/29/17 19:59 Albuterol/ Ipratropium (Duoneb) 3 ml Q6R NEB 08/21/17 03:00 09/20/17 02:59 08/22/17 02:05 3 ML Prednisone (PredniSONE TAB) 40 mg DAILY PO 08/22/17 09:00 09/21/17 08:59 08/22/17 08:41 40 MG Heparin Sodium (Porcine) (Heparin Sq 5000 Unit/0.5ml) 5,000 unit Q8 SQ 08/22/17 06:00 09/21/17 05:59 08/22/17 06:20 5,000 UNIT Amlodipine Besylate (Norvasc Tab) 5 mg QPM PO 08/21/17 21:30 09/20/17 21:29 08/21/17 22:31 5 MG Arformoterol Tartrate (Brovana 15MCG/ 2ML Neb Soln) 15 mcg BIDR INH 08/22/17 09:00 09/21/17 08:59 08/22/17 07:07 15 MCG Aspirin (Aspirin Chew) 81 mg DAILY PO 08/22/17 09:00 09/21/17 08:59 08/22/17 08:42 81 MG Vitamin B Complex/ Vit C/Folic Acid (Nephrocaps) 1 cap DAILY PO 08/22/17 09:00 09/21/17 08:59 08/22/17 08:43 1 CAP Budesonide (Pulmicort Respules 0.5MG/ 2ML Neb Soln) 0.5 mg BID INH 08/22/17 09:00 09/21/17 08:59 08/22/17 07:07 0.5 MG Clonidine HCl (Catapres Tab) 0.1 mg BID PO 08/22/17 09:00 09/21/17 08:59 08/22/17 08:42 0.1 MG Docusate Sodium (coLACE CAP) 100 mg DAILY PRN PO 08/21/17 21:15 09/20/17 21:14 08/22/17 08:42 100 MG Montelukast Sodium (Singulair Tab) 10 mg HS PO 08/21/17 21:30 09/20/17 21:29 08/21/17 22:32 10 MG Paroxetine HCl (pAXil TAB) 20 mg HS PO 08/21/17 21:30 09/20/17 21:29 08/21/17 22:31 20 MG Potassium Chloride (Klor-Con Tab) 20 meq DAILY PO 08/22/17 09:00 09/21/17 08:59 Pravastatin Sodium (Pravachol Tab) 40 mg QPM PO 08/21/17 21:30 09/20/17 21:29 08/21/17 22:31 40 MG Ranitidine HCl (zANTac TAB) 150 mg BID PO 08/21/17 21:30 09/20/17 21:29 08/22/17 08:44 150 MG Ferrous Sulfate (Feosol Tab) 325 mg BIDM PO 08/22/17 07:30 09/21/17 07:29 08/22/17 08:41 325 MG Tiotropium [place] (Spiriva Handihaler Inhaler) 1 puff QAM INH 08/22/17 09:00 09/21/17 08:59 08/22/17 08:48 1 PUFF Furosemide (Lasix Tab) 40 mg BID PO 08/21/17 21:30 09/20/17 21:29 08/22/17 08:41 40 MG Furosemide (Lasix Tab) 80 mg BID PO 08/21/17 21:30 09/20/17 21:29 08/22/17 08:45 80 MG Metoprolol Tartrate (Lopressor Tab) 75 mg BID PO 08/21/17 21:30 09/20/17 21:29 08/22/17 08:45 75 MG Miscellaneous Information (Consult) 1 ea UD PRN N/A 08/22/17 01:15 09/21/17 01:14 Insulin Human NPH (novoLIN-N NPH) 35 units QDB SC 08/22/17 07:30 09/21/17 07:29 Future Hold
[2017-08-22] MEDS: INSULIN HUMAN NPH SC SCH ×2 (11:03→17:27)
--- NOTE | 2017-08-22 11:45 | ECHOCARDIOGRAM REPORT ---
*NOTICE TO RECEIVING [employer] This information is strictly Confidential and protected under [place] law. [place] law prohibits you from making any further disclosure of this information unless further disclosure is expressly permitted by the written consent of the person to whom it pertains or is authorized by law. A general authorization for the release of medical or other information is not sufficient for this purpose. Hospital accepts no responsibility if the information is made available to any other person, INCLUDING THE PATIENT. Interpretation Summary * Name: NGA JEAN Study Date: 08/22/2017 10:12 AM BP: 158/65 mmHg * Patient Location: C.2T\S\S231\S\1 HR: 71 * : 1940 (M/d/yyyy) Gender: Female Height: 64 in * Age: 77 yrs Ethnicity: CA Weight: 164 lb * Ordering Physician: Matilde Winter * Referring Physician: Self, Referred * Performed By: Tamika Peacock RDCS * * Reason For Study: Congestive Heart Failure * BSA: 1.8 m2 * -- Conclusions -- * The left ventricle is normal in size. * Left ventricular systolic function is normal. * Ejection Fraction = 55-60%. * The right ventricular systolic function is normal. * No significant valvular pathology. Procedure Details * A complete two-dimensional transthoracic echocardiogram was performed (2D, M-mode, Doppler and color flow Doppler). Left Ventricle * The left ventricle is normal in size. * There is normal left ventricular wall thickness. * Ejection Fraction = 55-60%. * Left ventricular systolic function is normal. Right Ventricle * The right ventricle is normal size. * The right ventricular systolic function is normal. Atria * The left atrial size is normal. * Right atrial size is normal. * The interatrial septum is intact with no evidence for an atrial septal defect. Mitral Valve * The mitral valve anatomy is normal. * Significant mitral regurgitation is absent. Tricuspid Valve * The tricuspid valve anatomy is normal. * Significant tricuspid regurgitation is absent. Aortic Valve * The aortic valve is trileaflet. * The aortic valve opens well. * No hemodynamically significant valvular aortic stenosis. * There is no significant aortic regurgitation. Pulmonic Valve * The pulmonic valve is not well visualized. * There is no significant pulmonary regurgitation. Great Vessels * The aortic root and proximal ascending aorta are normal sized. Pericardium/Pleural * There is no pericardial effusion. MMode 2D Measurements and Calculations IVSd 0.98 cm IVSs 1.3 cm LVIDd 5.0 cm LVIDs 3.3 cm LVPWd 1.1 cm LVPWs 1.6 cm IVS/LVPW 0.90 FS 34.0 % EDV(Teich) 118.8 ml ESV(Teich) 44.3 ml EF(Teich) 62.7 % EDV(cubed) 125.7 ml ESV(cubed) 36.1 ml EF(cubed) 71.3 % % IVS thick 33.2 % % LVPW thick 51.2 % LV mass(C)d 191.4 grams LV mass(C)dI 106.5 grams/m\S\2 LV mass(C)s 174.7 grams LV mass(C)sI 97.2 grams/m\S\2 SV(Teich) 74.4 ml SI(Teich) 41.4 ml/m\S\2 SV(cubed) 89.6 ml SI(cubed) 49.8 ml/m\S\2 Ao root diam 2.7 cm Ao root area 5.8 cm\S\2 ACS 1.7 cm LA dimension 3.9 cm LA/Ao 1.4 LVAd ap4 35.7 cm\S\2 LVLd ap4 8.8 cm EDV(MOD-sp4) 127.8 ml EDV(sp4-el) 122.8 ml LVAs ap4 23.0 cm\S\2 LVLs ap4 8.0 cm ESV(MOD-sp4) 61.1 ml ESV(sp4-el) 56.0 ml EF(MOD-sp4) 52.2 % EF(sp4-el) 54.4 % LVAd ap2 34.8 cm\S\2 LVLd ap2 9.1 cm EDV(MOD-sp2) 116.1 ml EDV(sp2-el) 112.6 ml LVAs ap2 22.4 cm\S\2 LVLs ap2 8.0 cm ESV(MOD-sp2) 55.4 ml ESV(sp2-el) 53.0 ml EF(MOD-sp2) 52.3 % EF(sp2-el) 53.0 % LVLd %diff 3.6 % EDV(MOD-bp) 122.9 ml LVLs %diff 0.54 % ESV(MOD-bp) 57.8 ml EF(MOD-bp) 53.0 % SV(MOD-sp4) 66.7 ml SI(MOD-sp4) 37.1 ml/m\S\2 SV(MOD-sp2) 60.8 ml SI(MOD-sp2) 33.8 ml/m\S\2 SV(MOD-bp) 65.1 ml SI(MOD-bp) 36.2 ml/m\S\2 SV(sp4-el) 66.8 ml SI(sp4-el) 37.1 ml/m\S\2 SV(sp2-el) 59.6 ml SI(sp2-el) 33.2 ml/m\S\2 Doppler Measurements and Calculations MV E max charity 122.0 cm/sec MV A max charity 104.9 cm/sec MV E/A 1.2 MV dec time 0.27 sec Ao V2 max 177.7 cm/sec Ao max PG 12.6 mmHg Ao max PG (full) 7.2 mmHg LV V1 max PG 5.4 mmHg LV V1 max 116.6 cm/sec PA V2 max 131.6 cm/sec PA max PG 7.0 mmHg TR max charity 162.2 cm/sec
[2017-08-22] MEDS: POTASSIUM CHLORIDE 20 MEQ TABCR PO SCH (12:24)
[2017-08-22] MEDS ORDERED: METOLAZONE 5 MG TAB PO ONE (12:30)
--- NOTE | 2017-08-22 13:08 | NEPHROLOGY CONSULTATION ---
DATE OF CONSULTATION: 08/22/2017 REASON FOR CONSULT: Dialysis patient admitted with acute on chronic respiratory failure and shortness of breath. HISTORY OF PRESENT ILLNESS: The patient is a 77-year-old female with past medical history of end-stage renal disease for the last few years, on hemodialysis Thursday, Thursday, and Thursday at [facility]. She also has chronic severe COPD and chronic respiratory failure, on 2-liter oxygen continuous, coronary artery disease, longstanding, type 2 diabetes, chronic systolic congestive heart failure as well as hypertension. She presented yesterday to the Emergency Department with worsening shortness of breath for the last few days as well as questionable UTI. She did have her dialysis yesterday after which she felt slightly better but then became more short of breath again. When she presented to the hospital, she was in pretty significant respiratory distress. In fact, she was in full blown acute on chronic respiratory failure. Her pH was only 7.13 and her pCO2 was very high at 88. She was placed on BiPAP, and with that, pCO2 has gone down to 51 and pH is now much better at 7.34. She is now back on oxygen nasal cannula and she feels remarkably better with her breathing. Labs from this morning, sodium 132 and potassium is normal at 4.2. She is also written to get some Lasix as she still makes urine. PAST MEDICAL AND SURGICAL HISTORY: As detailed above in HPI. FAMILY HISTORY: Noncontributory. SOCIAL HISTORY: Former smoker, , retired. MEDICATIONS AT HOME: List was reviewed in detail and is as per the reconciliation list. She does take Lasix 120 mg twice daily. REVIEW OF SYSTEMS: As detailed in HPI. 12 systems reviewed and otherwise negative. The positive review of systems includes increasing shortness of breath, weakness, lethargy. PHYSICAL EXAMINATION: GENERAL: Elderly white female who at the time of my exam appeared fairly comfortable. She was not in any respiratory distress. VITAL SIGNS: Showed blood pressure of 158/65. She was on nasal cannula 3 liters. Pulse rate 71, temperature 36.7. HEENT: Mucous membranes moist. NECK: Supple. No jugular venous distention. CHEST: Bilateral decreased breath sounds and wheezing and rhonchi heard bilaterally. CARDIOVASCULAR: Regular rate and rhythm, 2/6 systolic murmur heard. ABDOMEN: Soft, nontender. EXTREMITIES: Show no pedal edema. NEUROLOGIC: Awake, alert, oriented x3. LABORATORY TESTS: From this morning showed sodium 132, potassium 4.2, BUN 31, creatinine 2.38, calcium 8.2. Hemoglobin 12.6, platelet count 281. Most recent blood gas from this morning shows 7.34 pH, pCO2 was 51, pO2 was 95, bicarb was 27. According to the chest x-ray report, it says cardiomegaly with pulmonary vascular prominence as well as diffuse bilateral lung opacities, small bilateral pleural effusion. Urine culture so far pending and negative. She is positive for MRSA. Influenza test negative. ASSESSMENT AND PLAN: A 77-year-old female with end-stage renal disease, on chronic hemodialysis Thursday, Thursday, Thursday, chronic obstructive pulmonary disease and chronic respiratory failure as well as chronic heart failure, admitted with acute on chronic respiratory failure. 1. End-stage renal disease. She gets dialysis Thursday, Thursday, Thursday. She did have her regular dialysis yesterday. At this time, there is absolutely no electrolyte problem. Looking at her creatinine, it appears she still has a good bit of residual kidney function left and I would like to utilize that opportunity and try to get some fluid removed with Lasix 100 mg IV q. 8 hours as well as metolazone 5 mg x1 now. This should maximize the fluid we can remove without dialysis. 2. Respiratory failure. It appears this is mostly related with pulmonary findings than true fluid overload. Her breathing has already improved remarkably as evidenced on arterial blood gas as well as her symptomatology. I do not think she needs dialysis today and we will continue to follow closely. Thank you very much. LOUISA
[2017-08-22] MEDS: FUROSEMIDE INJ 100 MG in SYRINGE 0 ML IV SCH ×2 (13:11→21:22)
--- NOTE | 2017-08-22 13:36 | Pharmacy Progress Note ---
Glycemic Control Intl Consult Date of Service Aug 22, 2017. Scope Glycemic Pharmacist consulted by Dr Crawford on 08/21/17 for glycemic control and to write orders per [facility] inpatient glycemic control protocol Objective Weight (Kilograms): 74.800 Accuchecks BSG (last 24hrs): Test 08/21/17 19:00 08/21/17 22:18 08/22/17 03:27 08/22/17 04:08 Random Glucose 199 mg/dl (70-99) 176 mg/dl (70-99) Bedside Glucose 239 mg/dl (70-90) 119 mg/dl (70-90) Test 08/22/17 06:43 08/22/17 11:15 Bedside Glucose 146 mg/dl (70-90) 228 mg/dl (70-90) Laboratory Data (last 24hrs) Test 08/21/17 19:00 08/22/17 04:08 Anion Gap 7.0 mmol/L 6.0 mmol/L BUN/Creatinine Ratio 11.1 13.2 Blood Urea Nitrogen 21 mg/dl 31 mg/dl Creatinine 1.89 mg/dl 2.38 mg/dl Potassium Level 4.0 mmol/L 4.2 mmol/L Sodium Level 130 mmol/L 132 mmol/L White Blood Count 8.30 K/uL 10.30 K/uL Red Blood Count 3.88 M/uL Hemoglobin 11.9 g/dL Hematocrit 34.6 % Mean Corpuscular Volume 89.2 fL Mean Corpuscular Hemoglobin 30.7 pg Mean Corpuscular Hemoglobin Concent 34.4 g/dl Platelet Count 246 K/uL Mean Platelet Volume 9.3 fL Neutrophils (%) (Auto) 62.5 % Lymphocytes (%) (Auto) 18.2 % Monocytes (%) (Auto) 13.9 % Eosinophils (%) (Auto) 4.7 % Basophils (%) (Auto) 0.5 % Neutrophils # (Auto) 5.19 K/uL Lymphocytes # (Auto) 1.51 K/uL Monocytes # (Auto) 1.15 K/uL Eosinophils # (Auto) 0.39 K/uL Basophils # (Auto) 0.04 K/uL Recent Pertinent Medications Outpatient Anti-diabetic Regimen: * NPH 8 units twice daily plus Novolog 6 units with dinner The patient is currently receiving: * Basal insulin: Lantus 10 units x 1 * Correctional Insulin: Novolog Correction per scale ACHS Goal Range: Low 120 mg/dL - High 160 mg/dL Correction Factor: 30 mg/dL/unit * Prandial insulin: Per carb ratio of 1 unit per 10 grams CHO consumed Risk Factors for Insulin Resistance: * Steroids: Solu-Medrol 40 mg IV x 1 around 0400 then prednisone 40 mg PO daily starting today * Infection: Pneumonia on Rocephin and vancomycin * Diet: type 2 diabetic diet Assessment & Plan ASSESSMENT: * Ms Ricks is a 77 y/o F with a PMH of COPD on home oxygen, CAD, CHF, HTN, ESRD on dialysis MWF, and type 2 diabetes with unknown control (HbA1C does not indicate true control due to dialysis) who presents with pneumonia. Patient was given Solu-Medrol 40 mg IV this morning around 0400 and then started prednisone 40 mg today. * Patient was given Lantus 10 units last night. She typically takes NPH at home. Will leave patient on NPH since she takes that and is continuing on oral prednisone. Give 0.4 units/kg of NPH for 40 mg of prednisone on top of home dose of 8 units. Give home dose of 8 units at dinnertime. Due to the Solu- Medrol given this morning, continue weight-based stress of 3 Novolog for today then expect decrease in requirements tomorrow. Patient's lunchtime blood sugar was elevated as her morning NPH was delayed until 1103. PLAN FOR INPATIENT GLYCEMIC CONTROL: * Basal insulin with NPH 35 units with breakfast and 8 units with dinner while on prednisone 40 mg * Correctional Insulin with NOVOLOG per scale ACHS or Q6hrs while NPO * Goal Range: Low 110 mg/dL - High 140 mg/dL * Correction Factor: 20 mg/dL/unit * Nutritional / Prandial insulin per carb ratio of 1 unit per 7 grams CHO consumed * Please note that the plan above was derived based on current level of insulin resistance and hospital stress. These recommendations are appropriate for inpatient admission only. Plan of care upon discharge will need to be reassessed to avoid potential outpatient hypo/hyperglycemia. Thank you.
[2017-08-22] MEDS ORDERED: CEFTRIAXONE SOD INJ 1 GM in DEXTROSE 5% ADD-VANTAGE 50ML 50 ML IV SCH (20:00)
[2017-08-22] MEDS: PAROXETINE 20 MG TAB PO SCH (21:23)
[2017-08-22] MEDS: AMLODIPINE BESYLATE 5 MG TAB PO SCH (21:23)
[2017-08-22] MEDS: MONTELUKAST SOD 10 MG TAB PO SCH (21:23)
[2017-08-22] MEDS: PRAVASTATIN SOD 40 MG TAB PO SCH (21:23)
[2017-08-23] VITALS (10 sets, daily range): BP systolic 150–188; BP diastolic 56–66; PULSE 58–106; TEMP 35.9–36.7; O2SAT 96–100
[2017-08-23] MEDS: ALBUT/IPRATROP 3MG/0.5MG NEB 3 ML VIAL NEB SCH ×3 (01:53→19:09)
[2017-08-23] MEDS ORDERED: INSULIN ASPART 100 UNITS/ML 3 ML PEN SC SCH (02:00)
[2017-08-23 06:04] LABS: HEMOGLOBIN 10.4 g/dL (12.0-16.0); MEAN CELL VOLUME 90.6 fL (80-100); MEAN CORPUSCULAR HEMOGLOBIN 30.4 pg (25-34); MEAN CORPUSCULAR HGB CONC 33.5 g/dl (32-36); MEAN PLATELET VOLUME 9.7 fL (7.4-10.4); PLATELET COUNT 223 K/uL (130-400); RED CELL DISTRIBUTION WIDTH CV 13.7 % (11.5-14.5); RED CELL DISTRIBUTION WIDTH SD 45.5 fL (36.4-46.3); WHITE BLOOD COUNT 9.88 K/uL (4.8-10.8)
[2017-08-23] MEDS: HEPARIN SOD 5000 UNIT/0.5 ML CARP SQ SCH ×3 (06:13→21:30)
[2017-08-23 06:42] LABS: CALCIUM 8.4 mg/dl (8.5-10.1); CREATININE 3.43 mg/dl (0.60-1.20); PHOSPHORUS 5.3 mg/dl (2.5-4.9)
[2017-08-23] MEDS: BUDESONIDE 0.5 MG/2 ML VIAL (PULMICORT) INH SCH ×2 (07:13→19:10)
[2017-08-23] MEDS: ARFORMOTEROL TART 15MCG/2ML VIAL INH SCH ×2 (07:13→19:10)
[2017-08-23] MEDS: INSULIN ASPART 100 UNITS/ML 3 ML PEN SC SCH ×4 (08:27→21:30)
[2017-08-23] MEDS: INSULIN HUMAN NPH SC SCH ×2 (08:27→17:46)
[2017-08-23] MEDS: RANITIDINE HCL 150 MG TAB PO SCH ×2 (08:30→21:27)
[2017-08-23] MEDS: METOPROLOL TARTRATE 25 MG TAB PO SCH ×2 (08:30→21:27)
[2017-08-23] MEDS: ASPIRIN 81 MG ECTAB PO SCH (08:31)
[2017-08-23] MEDS: NEPHROCAPS PO SCH (08:31)
[2017-08-23] MEDS: POTASSIUM CHLORIDE 20 MEQ TABCR PO SCH (08:31)
[2017-08-23] MEDS: TIOTROPIUM BROMIDE 5 PUFF/90 MCG INH INH SCH (08:32)
[2017-08-23] MEDS: FERROUS SULFATE 325 MG TAB PO SCH ×2 (08:33→17:45)
[2017-08-23] MEDS: CLONIDINE HCL 0.1 MG TAB PO SCH ×2 (08:33→21:27)
[2017-08-23] MEDS: FUROSEMIDE INJ 100 MG in SYRINGE 0 ML IV SCH ×2 (09:26→21:26)
[2017-08-23] MEDS: AZITHROMYCIN 250 MG TAB PO SCH (09:27)
--- NOTE | 2017-08-23 10:12 | Pharmacy Progress Note ---
Pharmacy Glycemic Short Note 2 Date of Service Aug 23, 2017. OUTPATIENT ANTIDIABETIC REGIMEN: * NPH 8 units BID plus Novolog 6 units with dinner ASSESSMENT: * Ms Ricks is a 77 y/o F with a PMH of COPD on home oxygen, CAD, CHF, HTN, ESRD on dialysis MWF, and type 2 diabetes with unknown control (HbA1C does not indicate true control due to dialysis) who presents with pneumonia. Patient was given Solu-Medrol 40 mg IV this morning around 0400 and then started prednisone 40 mg today. * Patient was given Lantus 10 units on admission. She typically takes NPH at home. Will leave patient on NPH since she takes that and is continuing on oral prednisone. Give 0.4 units/kg of NPH for 40 mg of prednisone on top of home dose of 8 units. Give home dose of 8 units at dinnertime. * Patient's blood sugars yesterday were [phone] with receiving 70 units of insulin (43 units of NPH). Lunch blood sugar elevated secondary to delayed NPH. Loosen Novolog to weight-based stress of 2 since patient trended downwards yesterday. For lunch removed carbohydrate ratio as patient has not used correction factor at all. Carbohydrate ratio appears to force patient down too far. * Fasting blood sugar 122 mg/dL which is decreased from yesterday and within goal range. Patient was lower prior to lunch at 68 mg/dL BUT NOT hypoglycemic. Reduced NPH dose tomorrow morning to 28 units (20% reduction). Continue 8 units as the patient's fasting was excellent. PLAN FOR INPATIENT GLYCEMIC CONTROL: * Basal insulin * NPH 28 units with breakfast and 8 units with dinner * Bolus insulin * NovoLog per scale ACHS or Q6hrs while NPO * Goal Range: Low 110 mg/dL - High 140 mg/dL * Correction Factor: 30 mg/dL/unit * Nutritional / Prandial insulin per carb ratio of 1 unit per -- grams CHO consumed PLAN FOR DISCHARGE: * Patient's HbA1C is currently unknown. HbA1C is on order. Reasonable to continue current regimen as long as patient does not have hypoglycemia at home.
[2017-08-23] MEDS: PAROXETINE 20 MG TAB PO SCH (21:26)
[2017-08-23] MEDS: AMLODIPINE BESYLATE 5 MG TAB PO SCH (21:26)
[2017-08-23] MEDS: MONTELUKAST SOD 10 MG TAB PO SCH (21:28)
[2017-08-23] MEDS: PRAVASTATIN SOD 40 MG TAB PO SCH (21:28)
[2017-08-23] MEDS ORDERED: ALBUT/IPRATROP 3MG/0.5MG NEB 3 ML VIAL NEB PRN (21:30)
--- NOTE | 2017-08-23 21:33 | Progress Note ---
Medicine Progress Note Date & Time of Visit: Aug 23, 2017 at 18:53. Subjective 77-year-old female with acute respiratory failure secondary to acute on chronic COPD exacerbation. She has felt well for the last 24 hours and is oxygenating at baseline which is 2 L nasal cannula. Her fatigue is improved she is tolerating p.o. she is mentating at baseline. Physical therapy evaluated her and reports that she can go home with family support. Urine culture pending. This was discussed with she and her granddaughter who is at bedside. Objective Last 8 Hrs Date Time Temp Pulse Resp B/P (MAP) Pulse Ox O2 Delivery O2 Flow Rate FiO2 08/23/17 16:00 Nasal Cannula 2.0 08/23/17 15:12 36.6 60 18 150/56 (87) 96 Nasal Cannula 2.0 08/23/17 14:05 61 18 97 Nasal Cannula 2.0 08/23/17 12:06 96 Nasal Cannula 2.0 Physical Exam: GEN: WNWD, in no acute distress, alert and appropriate, sitting in chair at bedside HEENT: NC/AT, normal sclerae, NC in place CARDIO: reg rate, S1/2 heard without m/g/r LUNGS: Clear to auscultation bilaterally ABD: soft, non-tender, non-distended, no rebound or guarding, +BS EXTREMITY: RP and DP palpable 2+ bilat, no LE swelling or edema, extremities are warm and well-perfused NEURO: CN 2-12 grossly intact, no gross focal deficits, however, pt appears fatigue MUSC: 5/5 strength throughout, no gross focal deficits but does have generalized weakness. SKIN: warm and dry Laboratory Results: 08/23/17 05:22 08/23/17 05:22 Test 08/21/17 19:00 08/21/17 19:21 08/22/17 04:08 08/22/17 08:15 Immature Granulocyte % (Auto) 0.2 % White Blood Count 8.30 K/uL (4.8-10.8) Red Blood Count 3.88 M/uL (4.2-5.4) Hemoglobin 11.9 g/dL (12.0-16.0) Hematocrit 34.6 % (37-47) Mean Corpuscular Volume 89.2 fL (80-100) Mean Corpuscular Hemoglobin 30.7 pg (25-34) Mean Corpuscular Hemoglobin Concent 34.4 g/dl (32-36) Platelet Count 246 K/uL (130-400) Mean Platelet Volume 9.3 fL (7.4-10.4) Neutrophils (%) (Auto) 62.5 % Lymphocytes (%) (Auto) 18.2 % Monocytes (%) (Auto) 13.9 % Eosinophils (%) (Auto) 4.7 % Basophils (%) (Auto) 0.5 % Neutrophils # (Auto) 5.19 K/uL (1.4-6.5) Lymphocytes # (Auto) 1.51 K/uL (1.2-3.4) Monocytes # (Auto) 1.15 K/uL (0.11-0.59) Eosinophils # (Auto) 0.39 K/uL (0-0.5) Basophils # (Auto) 0.04 K/uL (0-0.2) Immature Granulocyte # (Auto) 0.02 K/uL (0.00-0.02) Prothrombin Time 11.3 SECONDS (9.0-12.0) Prothromb Time International Ratio 1.1 (0.9-1.1) Total Bilirubin 0.4 mg/dl (0.2-1) Aspartate Amino Transf (AST/SGOT) 24 U/L (15-37) Alanine Aminotransferase (ALT/SGPT) 56 U/L (12-78) Alkaline Phosphatase 87 U/L (45-117) Total Creatine Kinase 53 U/L (26-192) Creatine Kinase MB 1.7 ng/ml (0.5-3.6) Creatine Kinase MB Ratio 3.2 (0-3.0) Total Protein 6.9 gm/dl (6.4-8.2) Albumin 2.7 gm/dl (3.4-5.0) Globulin 4.2 gm/dl (2.5-4.0) Albumin/Globulin Ratio 0.6 (0.9-2) Influenza Type A Antigen Neg for Influ A (NEG) Influenza Type B Antigen Neg for Influ B (NEG) Urine Color YELLOW Urine Appearance CLEAR (CLEAR) Urine pH 6.5 (4.5-7.5) Urine Specific [place] 1.013 (1.000-1.030) Urine Protein 3+ (NEG) Urine Glucose (UA) NEG (NEG) Urine Ketones NEG (NEG) Urine Occult Blood NEG (NEG) Urine Nitrite POS (NEG) Urine Bilirubin NEG (NEG) Urine Urobilinogen NEG (NEG) Urine Leukocyte Esterase SMALL (NEG) Urine WBC (Auto) 10-30 /hpf (0-5) Urine RBC (Auto) 0-4 /hpf (0-4) Urine Hyaline Casts (Auto) 1-5 /lpf (0-5) Urine Epithelial Cells (Auto) 20-30 /lpf (0-5) Urine Bacteria (Auto) NEG (NEG) Troponin I < 0.015 ng/ml (0-0.045) Arterial Blood pH 7.34 (7.35-7.45) Arterial Blood Partial Pressure CO2 51 mmHg (35-46) Arterial Blood Partial Pressure O2 95 mm/Hg (80-95) Arterial Blood HCO3 27 mmol/L (19-24) Arterial Blood Oxygen Saturation 97.0 % (90-95) Arterial Blood Base Excess 0.5 mEq/L (-9-1.8) Arterial Blood Gas Delivery 40% Alex Test POS (POS) Test 08/23/17 05:22 08/23/17 20:17 Red Blood Count 3.42 M/uL (4.2-5.4) Mean Corpuscular Volume 90.6 fL (80-100) Mean Corpuscular Hemoglobin 30.4 pg (25-34) Mean Corpuscular Hemoglobin Concent 33.5 g/dl (32-36) RDW Standard Deviation 45.5 fL (36.4-46.3) RDW Coefficient of Variation 13.7 % (11.5-14.5) Mean Platelet Volume 9.7 fL (7.4-10.4) Anion Gap 10.0 mmol/L (3-11) Est Creatinine Clear Calc Drug Dose 13.4 ml/min Estimated GFR () 14.1 Estimated GFR (Non- 12.1 BUN/Creatinine Ratio 20.2 (10-20) Calcium Level 8.4 mg/dl (8.5-10.1) Phosphorus Level 5.3 mg/dl (2.5-4.9) Magnesium Level 2.2 mg/dl (1.8-2.4) Random Vancomycin Level 22.3 mcg/ml Bedside Glucose 300 mg/dl (70-90) Date/Time Source Procedure Growth Status 08/21/17 21:33 Nasal MRSA DNA Surveillance Screen - Final Specimen Positive for MRSA by DNA Probe Complete 08/21/17 19:21 Urine,Catheterized Urine Culture - Preliminary Enterococcus Species Resulted Last 24 Hours Test 08/22/17 20:53 08/23/17 02:19 08/23/17 05:22 08/23/17 06:36 Bedside Glucose 98 mg/dl 133 mg/dl 122 mg/dl White Blood Count 9.88 K/uL Red Blood Count 3.42 M/uL Hemoglobin 10.4 g/dL Hematocrit 31.0 % Mean Corpuscular Volume 90.6 fL Mean Corpuscular Hemoglobin 30.4 pg Mean Corpuscular Hemoglobin Concent 33.5 g/dl RDW Standard Deviation 45.5 fL RDW Coefficient of Variation 13.7 % Platelet Count 223 K/uL Mean Platelet Volume 9.7 fL Sodium Level 132 mmol/L Potassium Level 4.0 mmol/L Chloride Level 97 mmol/L Carbon Dioxide Level 25 mmol/L Anion Gap 10.0 mmol/L Blood Urea Nitrogen 69 mg/dl Creatinine 3.43 mg/dl Est Creatinine Clear Calc Drug Dose 13.4 ml/min Estimated GFR () 14.1 Estimated GFR (Non- 12.1 BUN/Creatinine Ratio 20.2 Random Glucose 142 mg/dl Calcium Level 8.4 mg/dl Phosphorus Level 5.3 mg/dl Magnesium Level 2.2 mg/dl Random Vancomycin Level 22.3 mcg/ml Test 08/23/17 11:34 08/23/17 11:35 08/23/17 12:25 08/23/17 16:08 Bedside Glucose 56 mg/dl 63 mg/dl 104 mg/dl 102 mg/dl Assessment & Plan 77-year-old female with acute respiratory failure secondary to acute on chronic COPD exacerbation. She has felt well for the last 24 hours and is oxygenating at baseline which is 2 L nasal cannula. Her fatigue is improved she is tolerating p.o. she is mentating at baseline. Physical therapy evaluated her and reports that she can go home with family support. Urine culture pending. This was discussed with she and her granddaughter who is at bedside. 1. Acute respiratory failure secondary to acute on chronic COPD exacerbation- resolved at baseline. Echo performed this admission does not show any acute abnormalities. Continue prednisone, azithromycin, and bronchodilators. 2. ESRD on hemodialysis-patient receives care in [place]. Nephrology was consulted. She is on a Thursday schedule 3. Chronic systolic CHF-no baseline echo is available for record review. Patient is on baseline Lasix 120 twice daily. We will continue this. Patient does not appear to have acute CHF exacerbation at this time. Echo as above. Lasix per nephrology. 4. UTI secondary to enterococcus species-soft prednisone was was stopped as there is no evidence of pneumonia and ceftriaxone does not cover enterococcus. Continue vancomycin empirically pending sensitivities. Of note the patient is high risk for infection as her daughter straight catheter twice daily. 5. Diabetes type 2-pharmacy consult for glycemic management. Continue insulin while hospitalized;currently controlled. 6. Nonsustained VT-10 beats seen on telemetry overnight. No structural heart disease seen on echo this admission. Continue to monitor on telemetry. 7. Anemia of CKD-per nephrology DVT prophylaxis-heparin DO NOT RESUSCITATE Disposition-continue telemetry monitoring Matilde Winter DO [facility] hospitalist Current Inpatient Medications: Current Inpatient Medications Medications (Trade) Dose Ordered Sig/Yfn Route Start Time Stop Time Status Last Admin Dose Admin Acetaminophen (Tylenol Tab) 650 mg Q4H PRN PO 08/21/17 20:30 09/20/17 20:29 Ondansetron HCl (Zofran Inj) 4 mg Q6H PRN IV 08/21/17 20:30 09/20/17 20:29 Insulin Aspart (novoLOG ASPART) SLIDING SCALE If C... ACHS SC 08/21/17 21:45 09/20/17 21:44 08/23/17 08:27 6 UNITS Glucose (Glucose 40% Gel) 15-30 GRAMS 15 GRAMS... UD PRN PO 08/21/17 20:30 09/20/17 20:29 Glucose (Glucose Chew Tab) 4-8 Tablets 4 Tabl... UD PRN PO 08/21/17 20:30 09/20/17 20:29 Dextrose (Dextrose 50% 50ML Syringe) 25-50ML OF 50% DW IV FOR... UD PRN IV 08/21/17 20:30 09/20/17 20:29 Glucagon (Glucagon Inj) 1 mg UD PRN SQ 08/21/17 20:30 09/20/17 20:29 Miscellaneous Information (Consult Glycemic Management Pharmacy) 1 ea UD N/A 08/21/17 20:54 09/20/17 20:53 Azithromycin (Zithromax Tab) 500 mg QAM PO 08/22/17 09:00 08/29/17 08:59 08/23/17 09:27 500 MG Albuterol/ Ipratropium (Duoneb) 3 ml Q6R NEB 08/21/17 03:00 09/20/17 02:59 08/23/17 14:05 3 ML Prednisone (PredniSONE TAB) 40 mg DAILY PO 08/22/17 09:00 09/21/17 08:59 08/23/17 08:29 40 MG Heparin Sodium (Porcine) (Heparin Sq 5000 Unit/0.5ml) 5,000 unit Q8 SQ 08/22/17 06:00 09/21/17 05:59 08/23/17 13:54 5,000 UNIT Amlodipine Besylate (Norvasc Tab) 5 mg QPM PO 08/21/17 21:30 09/20/17 21:29 08/22/17 21:23 5 MG Arformoterol Tartrate (Brovana 15MCG/ 2ML Neb Soln) 15 mcg BIDR INH 08/22/17 09:00 09/21/17 08:59 08/23/17 07:13 15 MCG Vitamin B Complex/ Vit C/Folic Acid (Nephrocaps) 1 cap DAILY PO 08/22/17 09:00 09/21/17 08:59 08/23/17 08:31 1 CAP Budesonide (Pulmicort Respules 0.5MG/ 2ML Neb Soln) 0.5 mg BID INH 08/22/17 09:00 09/21/17 08:59 08/23/17 07:13 0.5 MG Clonidine HCl (Catapres Tab) 0.1 mg BID PO 08/22/17 09:00 09/21/17 08:59 08/23/17 08:33 0.1 MG Docusate Sodium (coLACE CAP) 100 mg DAILY PRN PO 08/21/17 21:15 09/20/17 21:14 08/22/17 08:42 100 MG Montelukast Sodium (Singulair Tab) 10 mg HS PO 08/21/17 21:30 09/20/17 21:29 08/22/17 21:23 10 MG Paroxetine HCl (pAXil TAB) 20 mg HS PO 08/21/17 21:30 09/20/17 21:29 08/22/17 21:23 20 MG Potassium Chloride (Klor-Con Tab) 20 meq DAILY PO 08/22/17 09:00 09/21/17 08:59 08/23/17 08:31 20 MEQ Pravastatin Sodium (Pravachol Tab) 40 mg QPM PO 08/21/17 21:30 09/20/17 21:29 08/22/17 21:23 40 MG Ranitidine HCl (zANTac TAB) 150 mg BID PO 08/21/17 21:30 09/20/17 21:29 08/23/17 08:30 150 MG Ferrous Sulfate (Feosol Tab) 325 mg BIDM PO 08/22/17 07:30 09/21/17 07:29 08/23/17 17:45 325 MG Tiotropium [place] (Spiriva Handihaler Inhaler) 1 puff QAM INH 08/22/17 09:00 09/21/17 08:59 08/23/17 08:32 1 PUFF Furosemide (Lasix Tab) 40 mg BID PO 08/21/17 21:30 09/20/17 21:29 Future Hold 08/22/17 08:41 40 MG Furosemide (Lasix Tab) 80 mg BID PO 08/21/17 21:30 09/20/17 21:29 Future Hold 08/22/17 08:45 80 MG Metoprolol Tartrate (Lopressor Tab) 75 mg BID PO 08/21/17 21:30 09/20/17 21:29 08/23/17 08:30 75 MG Miscellaneous Information (Consult) 1 ea UD PRN N/A 08/22/17 01:15 09/21/17 01:14 Aspirin (Ecotrin Tab) 81 mg QAM PO 08/23/17 09:00 09/22/17 08:59 08/23/17 08:31 81 MG Insulin Human NPH (novoLIN-N NPH) 8 units QDD SC 08/22/17 16:45 09/21/17 16:44 08/23/17 17:46 8 UNITS Furosemide 100 mg/ Syringe 10 ml @ 4 mls/min BID IV 4/7/18 12:30 09/21/17 12:29 08/23/17 09:26 4 MLS/MIN Insulin Human NPH (novoLIN-N NPH) 28 units QDB AR 08/24/17 07:30 09/23/17 07:29
[2017-08-24] VITALS (20 sets, daily range): BP systolic 132–181; BP diastolic 53–81; PULSE 50–68; TEMP 36.5–36.7; O2SAT 96–99; Ht 162.6 cm; Wt 75.8 kg
[2017-08-24] MEDS: HEPARIN SOD 5000 UNIT/0.5 ML CARP SQ SCH ×2 (05:46→14:00)
[2017-08-24 06:04] LABS: HEMOGLOBIN 11.7 g/dL (12.0-16.0); MEAN CORPUSCULAR HEMOGLOBIN 30.6 pg (25-34); MEAN CORPUSCULAR HGB CONC 34.4 g/dl (32-36); MEAN PLATELET VOLUME 9.4 fL (7.4-10.4); PLATELET COUNT 246 K/uL (130-400); RED CELL DISTRIBUTION WIDTH CV 13.4 % (11.5-14.5); RED CELL DISTRIBUTION WIDTH SD 43.3 fL (36.4-46.3); WHITE BLOOD COUNT 10.29 K/uL (4.8-10.8)
[2017-08-24 06:37] LABS: CALCIUM 8.3 mg/dl (8.5-10.1); CREATININE 3.83 mg/dl (0.60-1.20); POTASSIUM 3.5 mmol/L (3.5-5.1)
[2017-08-24] MEDS: ARFORMOTEROL TART 15MCG/2ML VIAL INH SCH ×2 (07:06→19:01)
[2017-08-24] MEDS: BUDESONIDE 0.5 MG/2 ML VIAL (PULMICORT) INH SCH ×2 (07:06→19:01)
[2017-08-24] MEDS ORDERED: INSULIN HUMAN NPH SC SCH (07:30)
[2017-08-24] MEDS: INSULIN ASPART 100 UNITS/ML 3 ML PEN SC SCH (07:35)
[2017-08-24] MEDS: AZITHROMYCIN 250 MG TAB PO SCH (08:28)
[2017-08-24] MEDS: POTASSIUM CHLORIDE 20 MEQ TABCR PO SCH (08:29)
[2017-08-24] MEDS: METOPROLOL TARTRATE 25 MG TAB PO SCH (08:29)
[2017-08-24] MEDS: CLONIDINE HCL 0.1 MG TAB PO SCH (08:29)
[2017-08-24] MEDS: TIOTROPIUM BROMIDE 5 PUFF/90 MCG INH INH SCH (08:29)
[2017-08-24] MEDS: FERROUS SULFATE 325 MG TAB PO SCH ×2 (08:29→17:27)
[2017-08-24] MEDS: NEPHROCAPS PO SCH (08:29)
[2017-08-24] MEDS: ASPIRIN 81 MG ECTAB PO SCH (08:29)
[2017-08-24] MEDS: RANITIDINE HCL 150 MG TAB PO SCH (08:29)
[2017-08-24] MEDS: FUROSEMIDE INJ 100 MG in SYRINGE 0 ML IV SCH (08:40)
[2017-08-24] MEDS ORDERED: AMOXICILLIN CONSULT PHARMACY PRN (10:10)
[2017-08-24] MEDS ORDERED: AMOXICILLIN 250 MG CAP PO SCH (10:30)
--- NOTE | 2017-08-24 10:42 | Pharmacy Progress Note ---
Pharmacy Glycemic Short Note 2 Date of Service Aug 24, 2017. OUTPATIENT ANTIDIABETIC REGIMEN: * NPH 8 units BID plus Novolog 6 units with dinner Item Value Date Time Bedside Glucose 122 mg/dl H 08/23/17 0636 Bedside Glucose 56 mg/dl *L 08/23/17 1134 Bedside Glucose 63 mg/dl *L 08/23/17 1135 Bedside Glucose 104 mg/dl H 08/23/17 1225 Bedside Glucose 102 mg/dl H 08/23/17 1608 Bedside Glucose 300 mg/dl H 08/23/172016 Bedside Glucose 65 mg/dl *L 08/24/17 0710 Bedside Glucose 94 mg/dl H 08/24/17 0731 ASSESSMENT: * 77yo T2DM female with unknown degree of outpatient control. A1c is not reliable in ESRD/HD d/t interactions between the A1c analyzing technique and high levels of urea in ESRD, reduced RBC life span, iron deficiency anemia, and EPO administration. HbA1c > 7.5% in ESRD patient may overestimate the extent of hyperglycemia in ESRD patients. * Pt currently receiving stressed outpatient insulin dosing for steroid induced hyperglycemia secondary to prednisone and infection. * Pt with LOW BSG (56, 62 mg/dl) yesterday prior to lunch due to double insulin coverage --> morning NPH dose was stressed for prednisone AND carb coverage was continued. * Pt with rebound hyperglycemia (BSG 300 mg/dl) last night at bedtime since carb coverage was stopped with dinner. Pt typically takes carb coverage with dinner only. * Pt with LOW BSG (65 mg/dl) this morning secondary to large dose of correctional insulin given last night at bedtime for BSG = 300 * Pt is on day 3 of 5 of prednisone. Pt should be able to resume previous outpatient regimen once prednisone stopped. PLAN FOR INPATIENT GLYCEMIC CONTROL: Pt with hypo/hyperglycemia over the past 24hrs due to double dosing insulin at breakfast and omitting insulin with dinner. Will adjust orders to prevent severe BSG fluctuations today. * Basal insulin * Decrease morning dose of NPH 28 units with breakfast and continue evening dose pf 8 units with dinner (this is outpatient dosing) * Bolus insulin * NovoLog per scale ACHS or Q6hrs while NPO * Goal Range: Low 110 mg/dL - High 140 mg/dL * Correction Factor: 30 mg/dL/unit * Nutritional / Prandial insulin per carb ratio of 1 unit per -- grams CHO consumed * Add Nutritional / Prandial insulin per carb ratio of 1 unit per 9 grams CHO consumed with dinner ONLY. Pt uses prandial coverage with dinner only as an outpatient. PLAN FOR DISCHARGE: * Prednisone 40mg daily is to continue for 2 more days (08/25 & 08/26). Ideally, recommend increasing AM dose of NPH only for these two days and then resuming outpatient regimen when prednisone discontinued. * However, after discussion with provider the risks of changing outpatient regimen (pt cognitive function/understanding) outweigh the benefits. * Recommend continuing outpatient regimen and counselling patient to call outpatient provider if BSG > 350 mg/dl.
[2017-08-24] MEDS ORDERED: INSULIN ASPART 100 UNITS/ML 3 ML PEN SC SCH ×2 (11:00→16:45)
[2017-08-24] MEDS ORDERED: PRD20 PO (14:17)
[2017-08-24] MEDS ORDERED: AMX250 PO (14:17)
--- NOTE | 2017-08-24 14:21 | Discharge Summary ---
Discharge Summary Date of Service Aug 24, 2017. Discharge Summary Admission Date: Aug 21, 2017 at 20:53 Discharge Date: Aug 24, 2017 Discharge Disposition: Home with services Principal Diagnosis: Acute respiratory failure secondary to acute on chronic COPD exacerbation ESRD on hemodialysis Chronic systolic heart failure UTI secondary to Enterococcus faecalis Diabetes mellitus type 2 Nonsustained V. tach-isolated Anemia of CKD Procedures: TTE. Vaccinations: None. Consultations: Nephrology-Dr [place] Pending Studies/Follow-Up: see instructions below. Medication Reconciliation New Medications: Amoxicillin (Amoxicillin) 250 Mg Cap 250 MG PO BID for 10 Days, #20 CAP Please take twice daily, but on dialysis days, please take first dose AFTER dialysis session. Prednisone (Prednisone) 20 Mg Tab 40 MG PO DAILY for 2 Days, #4 TAB Take two tabs daily (40mg) for the next two days, then stop. Continued Medications: Albuterol Sulf (Proventil 0.083% 2.5MG/3ML) 2.5 Mg/3 Ml Nebu 2.5 MG INH BID, EA Amlodipine (Norvasc) 5 Mg Tab 5 MG PO QPM, TAB TAKES 1600 Arformoterol Tartrate (Brovana) 15 Mcg/2 Ml Neb 15 MCG INH BID, INHALER Aspirin (Aspirin Chewable) 81 Mg Chew 81 MG PO DAILY B-Complex W/ C & Folic Acid (Triphrocaps) 1 Cap Cap 1 CAP PO DAILY Budesonide (Pulmicort Respules 0.5MG/2ML) 0.5 Mg/2 Ml Nebu 2 ML INH BID, EA Clonidine Hcl (Catapres) 0.1 Mg Tab 0.1 MG PO BID, TAB MAY TAKE BEFORE DIALYSIS Docusate Sodium (Colace) 100 Mg Cap 1 CAP PO DAILY PRN for Constipation for 30 Days, #30 CAP Ergocalciferol (Vitamin D 09292 Unit) 50,000 Unit Cap 00250 UNIT PO WK, CAP Ferrous Sulfate (Ferrous Sulfate) 325 Mg Tab 325 MG PO BID Flunisolide (Nasal) (Flunisolide) 0.025 % Spr 2 SPRY NIKOS BID PRN for Nasal Congestion, #25 ML 3 Refills Fluocinonide (Lidex 0.05% Oint) 180 Appln/60 Gm Oint 1 APPLN TOP BID PRN for AFFECTED ARREA Furosemide (Lasix) 80 Mg Tab 80 MG PO BID, TAB TAKE WITH 40 MG TAB = 120 MG. TAKE BEFORE DIALYSIS @ 0800 Furosemide (Lasix) 40 Mg Tab 40 MG PO BID, TAB Insulin Aspart (Novolog) 100 Units/Ml Inj 6 UNITS SQ Q DINNER Insulin Human NPH (Novolin N) 100 Units/Ml Susp 8 UNITS SQ BID TAKE AM & HS Metoprolol Tartrate (Lopressor) (Lopressor) 50 Mg Tab 50 MG PO BID, TAB TAKE WITH 25 MG TAB = 75 MG. TAKE AFTER DIALYSIS. Metoprolol Tartrate (Lopressor) (Lopressor) 25 Mg Tab 25 MG PO BID, TAB TAKE WITH 50MG TAB = 75 MG. TAKE AFTER DIALYSIS Montelukast Sodium (Singulair) 10 Mg Tab 10 MG PO HS, TAB Paroxetine (Paxil) 20 Mg Tab 20 MG PO HS, TAB Polyethylene Glycol 3350 (Miralax) 1 Pow Pow 17 GM PO DAILY PRN for Constipation, #255 GM Polyethylene Glycol-Propylene (Systane Ultra) 1 Natalia Natalia 1 DROPS OP QID PRN for DRYNESS, #30 ML 4 Refills Potassium Ext Rel (Klor-Con) 20 Meq Tabcr 20 MEQ PO DAILY, TAB Pravastatin Sodium (Pravachol) 40 Mg Tab 1 TAB PO QPM for 90 Days, TAB 3 Refills Probiotic Product (Probiotic) 1 Cap Cap 1 CAP PO DAILY Ranitidine Hcl (Zantac) 150 Mg Tab 150 MG PO BID, TAB Tiotropium [place] (Spiriva Respimat) 2.5 Mcg/Act Spr 2 PUFF INH QAM, INHALER [Lidocaine Prilocaine] () 1 APPLN TOP UD APPLY 30 MIN PRIOR TO DIALYSIS Admission Information HPI (per Admitting provider): This is a 77 year old female with a PMH of ESRD on HD , COPD and chronic respiratory failure on 2L of O2 continuously, CAD, insulin dependent DM2, chronic systolic CHF, HTN - presents with worsening shortness of breath x1 day and UTI. Patient was short of breath all day; went to dialysis and had her dialysis, she felt slightly better, but then became more short of breath. Pt. uses 2L of O2 chronically. As per daughter, she was also concerned about a UTI because the patient becomes more lethargic/tired with UTIs; she has had recurrent UTIs in the past. Currently, she is saturating well on her baseline O2. Very hard of hearing and lethargic; most of the history is obtained by the daughter. Physical Exam (per Admitting): General Appearance: + pertinent finding (lethargic) Head: normocephalic, atraumatic Eyes: normal inspection ENT: + pertinent finding (hard of hearing) Neck: supple Respiratory/Chest: no respiratory distress, no accessory muscle use, + decreased breath sounds Cardiovascular: regular rate, rhythm, no edema, + systolic murmur (+2/6 holosystolic murmur) Abdomen/GI: normal bowel sounds, non tender, soft Extremities/Musculoskelatal: normal inspection, no calf tenderness, normal capillary refill, no pedal edema, normal range of motion Neurologic/Psych: no motor/sensory deficits, + pertinent finding (+lethargic , arouses to verbal/tactile stimuli) Skin: normal color Lymphatic: no adenopathy Hospital Course 77-year-old female with acute respiratory failure secondary to acute on chronic COPD exacerbation. She has felt well for the last 24 hours and is oxygenating at baseline which is 2 L nasal cannula. Her fatigue is improved she is tolerating p.o. she is mentating at baseline. Physical therapy evaluated her and reports that she can go home with family support. Urine culture revealed E faecalis. The discharge plan was discussed with she and her granddaughter/ daughter who is at bedside. 1. Acute respiratory failure secondary to acute on chronic COPD exacerbation- resolved, at baseline. Echo performed this admission does not show any acute abnormalities. Continue prednisone, completed azithromycin course while inpatient, and bronchodilators. 2. ESRD on hemodialysis-patient receives care in [place]. Nephrology was consulted for inpatient session. She is on a Thursday schedule. 3. Chronic systolic CHF-no baseline echo is available for record review. Patient is on baseline Lasix 120 twice daily. We will continue this. Patient does not appear to have acute CHF exacerbation at this time. Echo as above. Lasix per nephrology. 4. UTI secondary to enterococcus species-soft ceftriaxone was stopped as the clinical picture was not consistent with pneumonia and ceftriaxone does not cover enterococcus. Vancomycin was continued empirically and she was transitioned to Amoxicillin at discharge. Of note, she is straight cathed 2-3 times daily and this is a possible cause of infection, but that is uncertain. 5. Diabetes type 2-pharmacy consult for glycemic management. Continue insulin while hospitalized;currently controlled. 6. Nonsustained VT-10 beats seen on telemetry overnight. No structural heart disease seen on echo this admission. Continue to monitor on telemetry. No further abnormalities on telemetry were seen. No structural heart disease, echo or electrolyte abnormalities. She is asymptomatic. No further cardiac workup required at this time. 7. Anemia of CKD-per nephrology DVT prophylaxis-heparin DO NOT RESUSCITATE Disposition-dispo to home with family assistance. DO Eugenio Swann hospitalist Total time spent on discharge = 60 minutes This includes examination of the patient, discharge planning, medication reconciliation, and communication with other providers. [place] [address] Discharge Instructions Patient Name: NGA JEAN Admit Date: 08/22/1803/06/18 [facility] Rec: [id number] Att Phy: Matilde Winter DO Acct ID: [id number] Patti Phy: No Doctor, Assigned Date: 1940 Fam Phy: No Doctor, Assigned Age: 77 Location: [facility] Sex: F Room/Bed: [facility] CC: No Doctor, Assigned Matilde Winter DO Please take this sheet to every appointment for the next month Discharge Instructions Date of Service Aug 24, 2017. Admission Reason for Admission: Copd Exacerbation, Uti Discharge Discharge Diagnosis / Problem: COPD exacerbation, E faecalis UTI Discharge Goals Goal(s): Prevent Disease Progression Activity Recommendations Activity Limitations: per Instructions/Follow-up section . Instructions / Follow-Up Instructions / Follow-Up Please take all medications as instructed. Please note amoxicillin antibiotic is to be taken twice daily. On days when he received dialysis please take first dose of amoxicillin after your dialysis session. Please follow-up with primary care doctor within 2-4 weeks of discharge. It was a pleasure taking care of you! Call if you have any questions or problems. You can reach a [facility] hospitalist on duty at [facility] 24 hours a day by calling [phone]. Take care of yourself. DO Eugenio Swann Gabrielist Current Hospital Diet Patient's current hospital diet: Diabetes Type 2 Diet, AHA Diet (Heart Healthy) Discharge Diet Recommended Diet: AHA Diet (Heart Healthy) Procedures Procedures Performed: TTE, inpatient hemodialysis Pending Studies Studies pending at discharge: yes List of pending studies: HBV serologies Medical Emergencies . Who to Call and When: Medical Emergencies: If at any time you feel your situation is an emergency, please call 911 immediately. . Non-Emergent Contact Non-Emergency issues call your: Primary Care Provider . . "Provider Documentation" section prepared by Matilde Winter. . <Electronically signed by Matilde Winter DO> Signed: 08/24/17 1425 Signed: The status of this report is Signed * If report status is Draft, the document has not been finalized by the responsible provider.
--- NOTE | 2017-08-24 14:25 | Discharge Instructions ---
Discharge Instructions Date of Service Aug 24, 2017. Admission Reason for Admission: Copd Exacerbation, Uti Discharge Discharge Diagnosis / Problem: COPD exacerbation, E faecalis UTI Discharge Goals Goal(s): Prevent Disease Progression Activity Recommendations Activity Limitations: per Instructions/Follow-up section . Instructions / Follow-Up Instructions / Follow-Up Please take all medications as instructed. Please note amoxicillin antibiotic is to be taken twice daily. On days when he received dialysis please take first dose of amoxicillin after your dialysis session. Please follow-up with primary care doctor within 2-4 weeks of discharge. It was a pleasure taking care of you! Call if you have any questions or problems. You can reach a [facility] hospitalist on duty at [facility] 24 hours a day by calling [phone]. Take care of yourself. Matilde Winter DO [facility] Hospitalist Current Hospital Diet Patient's current hospital diet: Diabetes Type 2 Diet, AHA Diet (Heart Healthy) Discharge Diet Recommended Diet: AHA Diet (Heart Healthy) Procedures Procedures Performed: TTE, inpatient hemodialysis Pending Studies Studies pending at discharge: yes List of pending studies: HBV serologies Medical Emergencies . Who to Call and When: Medical Emergencies: If at any time you feel your situation is an emergency, please call 911 immediately. . Non-Emergent Contact Non-Emergency issues call your: Primary Care Provider . . "Provider Documentation" section prepared by Matilde Winter. .
[2017-08-24] MEDS: INSULIN HUMAN NPH SC SCH (17:31)
--- NOTE | 2017-08-27 08:25 | EDITING REQUIRED CODING QUERY ---
CODING QUERY To promote full compliance with coding requirements relating to patient care, provider participation is requested in all cases of bag machine set up operator uncertainty. Please assist us with the question(s) below: In the record, it states that the patient has an UTI. Please clarify below the cause of the UTI if applicable. Thank you. There is documentation in Progress Notes and on Discharge Summary that the patient is high risk for infection as her daughter straight catheter twice daily. ( x ) UTI, unspecified cause. ( ) Self-catheterization was the cause of the UTI. ( ) Other (Specify): Principal Diagnosis: "_that condition established after study, to be chiefly responsible for occasioning the admission of the patient to the hospital for care." Co-Existing Principal Diagnosis: "_when two or more diagnoses equally meet the criteria for principal diagnosis as determined by the circumstances of admission, diagnostic work up, and/or therapy provided, and the Alphabetic Index, Tabular List, or another coding guideline does not provide sequencing direction, any one of the diagnoses may be sequenced first." "When the physician has documented what appears to be a current diagnosis in the body of the record, but has not included the diagnosis in the final diagnostic statement, the physician should be asked whether the diagnosis should be added." ([facility] 2 QTR90. p3-4)
--- NOTE | 2017-08-28 08:07 | EDITING REQUIRED CODING QUERY ---
CODING QUERY To promote full compliance with coding requirements relating to patient care, provider participation is requested in all cases of podiatrist assistant uncertainty. Please assist us with the question(s) below: Due to conflicting documentation on the previous query and documentation that has since been added on the Discharge Summary, a new query is needed to clarify. There is documentation of UTI and there was documentation that the patient is high risk for infection as her daughter straight catheter twice daily. The previous query showed UTI, unspecified cause but the Discharge Summary documentation that was added to and now documents, "Of note, she is straight cathed 2-3 times daily and this is a possible cause of infection, but that is uncertain." Please clarify below the likely cause of the UTI if applicable. Thank you. ( x ) UTI 2/2 E faecalise possibly related to self-catheterizations ( ) Self-catheterization was the possible cause of the UTI. ( ) Other (Specify): Principal Diagnosis: "_that condition established after study, to be chiefly responsible for occasioning the admission of the patient to the hospital for care." Co-Existing Principal Diagnosis: "_when two or more diagnoses equally meet the criteria for principal diagnosis as determined by the circumstances of admission, diagnostic work up, and/or therapy provided, and the Alphabetic Index, Tabular List, or another coding guideline does not provide sequencing direction, any one of the diagnoses may be sequenced first." "When the physician has documented what appears to be a current diagnosis in the body of the record, but has not included the diagnosis in the final diagnostic statement, the physician should be asked whether the diagnosis should be added." ([facility] 2 QTR90. p3-4)
== END 2017-08-24 19:22 | disposition home health service (06) | DRG 698 ==
LOC: C.EDB 18:31 → C.2T 20:53 → UNDOADMIN 20:53 → ENRESERV 21:00
PROVIDERS: ADMIT Family Medicine; ATTEND Hospitalist
DX: N99.89 Other postprocedural complications and disorders of genitourinary system (principal); N18.6 End stage renal disease; J96.20 Acute and chronic respiratory failure, unspecified whether with hypoxia or hypercapnia; N39.0 Urinary tract infection, site not specified; J44.1 Chronic obstructive pulmonary disease with (acute) exacerbation; E87.4 Mixed disorder of acid-base balance; I47.2 Ventricular tachycardia; I13.2 Hypertensive heart and chronic kidney disease with heart failure and with stage 5 chronic kidney disease, or end stage renal disease; I50.22 Chronic systolic (congestive) heart failure; B95.2 Enterococcus as the cause of diseases classified elsewhere; E11.22 Type 2 diabetes mellitus with diabetic chronic kidney disease; I25.10 Atherosclerotic heart disease of native coronary artery without angina pectoris; D63.1 Anemia in chronic kidney disease; Z51.81 Encounter for therapeutic drug level monitoring; Z79.899 Other long term (current) drug therapy; Z79.82 Long term (current) use of aspirin; Z79.4 Long term (current) use of insulin; Z99.81 Dependence on supplemental oxygen; Z99.2 Dependence on renal dialysis; Z66 Do not resuscitate; Z87.442 Personal history of urinary calculi; Z87.891 Personal history of nicotine dependence; Y84.6 Urinary catheterization as the cause of abnormal reaction of the patient, or of later complication, without mention of misadventure at the time of the procedure